=== PATIENT | female | born 1945 | race Caucasian/White ===

== ENCOUNTER → 2018-09-18 | Outpatient (CLI) | payer BC, MEDICARE ==
--- NOTE | 2018-09-21 13:33 | MM ---
Reason for exam: screening (asymptomatic). Last mammogram was performed 2 years and 5 months ago. History: Patient is postmenopausal. Took hormonal contraceptives for 5 years. Physical Findings: A clinical breast exam by your physician is recommended on an annual basis and results should be correlated with mammographic findings. MG Screening Mammo w CAD Bilateral CC and MLO view(s) were taken. Prior study comparison: May 02, 2016, bilateral MG screening mammo w CAD. March 01, 2015, bilateral MG screening mammo w CAD. There are scattered fibroglandular densities. Stable benign calcifications. No significant changes when compared with prior studies. ASSESSMENT: Benign, BI-RAD 2 RECOMMENDATION: Routine screening mammogram of both breasts in 1 year.
== END ==
LOC: RADMAMWWP 10:56
PROVIDERS: ATTEND Family Medicine
DX: Z12.31 Encounter for screening mammogram for malignant neoplasm of breast (principal)
CPT/HCPCS: 77067

== ENCOUNTER → 2018-10-14 | Outpatient (CLI) | payer BC | LOC: LABPAT 14:48 | PROVIDERS: ATTEND Orthopaedic Surgery | DX: Z01.812 Encounter for preprocedural laboratory examination (principal) | CPT/HCPCS: 87070 ==

== ENCOUNTER 2018-11-09 13:48 | Inpatient (IN) | payer BC, MEDICARE ==
--- NOTE | 2018-11-08 18:16 | HP ---
HISTORY AND PHYSICAL REASON FOR ADMISSION: Surgery 11/09/2018 HISTORY OF PRESENT ILLNESS: Estefani Michaels is a 73-year-old patient seen with symptomatic right knee osteoarthritis. After treatment options were discussed with her, she elected to proceed with right total knee arthroplasty. Consent regarding the procedure was obtained. Medical clearance was provided by Dr. Valdez. PAST MEDICAL HISTORY: Hypertension, daw-nxgnyke-fduacqldu diabetes, gastroesophageal reflux disease. PAST SURGICAL HISTORY: D and C. MEDICATIONS ARE: Glucophage, Pravachol, Prilosec, Zestoretic. ALLERGIES: None known. SOCIAL HISTORY: She denies current tobacco use. PHYSICAL EXAMINATION: Evaluation of the right knee range of motion is negative 4-5 to 110 degrees. There is a mild effusion present. Tenderness medial joint line. Crepitus medial and patellofemoral compartments with range of motion. Pain with patellofemoral compression. Ligaments stable. Hip rotation without pain. Distal neurovascular exam is intact. RADIOGRAPHS: Radiographs of the right knee reveal severe medial and severe patellofemoral compartment osteoarthritis. IMPRESSION: 1. Right knee osteoarthritis. 2. Hypertension. 3. Hyperlipidemia. 4. Zaw-akzwnud-gplahnwtg diabetes. PLAN: Right total knee arthroplasty. Surgery 11/09/2018. MMODL / IJN: [id number] /
[~2018-11-09 13:48] MED LIST: HYDROmorphone 0.5 MG/0.5 ML SYRINGE IVP PRN; MIDAZOLAM (PF) 2 MG/2 ML VIAL IV PRN; TRANEXAMIC ACID 1,000 MG in SODIUM CHLORIDE 0.9% 100 ML IVPB ONE; ceFAZolin IN SWFI 2 GM/20 ML SYRINGE IVP ONE
[2018-11-09] MEDS: MELOXICAM 7.5 MG TAB PO ONE ×2 (14:09→20:52)
[2018-11-09] MEDS: ACETAMINOPHEN TAB 500 MG TAB PO ONE ×2 (14:09→20:52)
[2018-11-09] MEDS: LACTATED RINGERS 1,000 ML IV SCH (14:26)
[2018-11-09] MEDS ORDERED: LIDOCAINE 1% 20 ML VIAL (10MG/ML) FOR IV START INTRADERMA ONE (14:27)
[2018-11-09 14:34] LABS: Glucose,Whole Blood 116 mg/dL (75-99)
[2018-11-09] MEDS: DEXAMETHASONE SOD PHOSPHATE 10 MG/ML 1 ML VIAL IV ONE ×2 (14:36→20:53)
[2018-11-09] MEDS: ONDANSETRON 4 MG/2 ML VIAL IVP ONE ×2 (14:36→20:54)
[2018-11-09] MEDS ORDERED: fentaNYL (PF) 50 MCG/ML 2 ML AMP IVP ONE (14:38)
[2018-11-09] MEDS ORDERED: ROPIVACAINE 246.25 MG, EPINEPHrine 0.5 MG, KETOROLAC 30 MG, cloNIDine HCL/PF 80 MCG, WA... MISCELLANE ONE ×5 (15:04)
[2018-11-09] MEDS ORDERED: ROPIVACAINE 1,100 MG, SODIUM CHLORIDE 0.9% 500 ML 330 ML MISCELLANE PRN ×2 (15:07)
--- NOTE | 2018-11-09 15:09 | P.ONQ ---
Anesthesiology Proc Note - PNB - Peripheral Nerve Block Performed Right Adductor Canal Infusion Time Out Performed: Yes Procedure Start Time: 14:37 Indication: Acute Post-Operative Pain Specifically requested for management of pain by DrRah: Quinn Kuo Sedation Type: Sedate with meaningful contact maintained Preparation: Sterile Prep Position: Supine Catheter Depth at Skin (cm): 8 Catheter: Indwelling Needle Types: Other (see comment) (Pajunk) Needle Size: 100mm (4") Needle Gauge: 18 Technique: Ultrasound Injectate: 0.5% Ropivacaine (see comment for volume) (20) Blood Aspirated: No Pain Paresthesia on Injection Noted: No Resistance on Injection: Normal Events: Uneventful and Well Tolerated
[2018-11-09] MEDS ORDERED: LIDOCAINE 1% INJ 10MG/ML (20 ML MDV) ONE (15:56)
[2018-11-09] MEDS ORDERED: fentaNYL (PF) 50 MCG/ML 2 ML AMP ONE (15:56)
[2018-11-09] MEDS ORDERED: MIDAZOLAM 2 MG/2 ML VIAL ONE (15:56)
[2018-11-09] MEDS ORDERED: PROPOFOL 10 MG/ML 20 ML VIAL IV ONE (15:56)
[2018-11-09] MEDS ORDERED: SODIUM CHLORIDE 0.9% 100 ML BAG ONE (15:56)
[2018-11-09] MEDS ORDERED: TRANEXAMIC ACID 1,000 MG/10 ML VIAL ONE (15:56)
[2018-11-09] MEDS ORDERED: ceFAZolin 3,000 MG in SODIUM CHLORIDE 0.9% IRRIGATIO 3,000 ML IRRIGATION ONE (16:25)
[2018-11-09] MEDS ORDERED: ONDANSETRON 4 MG/2 ML VIAL IVP PRN (16:31)
[2018-11-09] MEDS ORDERED: NALOXONE 0.4 MG/ML 1 ML VIAL IV PRN (16:31)
[2018-11-09] MEDS ORDERED: HYDROmorphone 0.5 MG/0.5 ML SYRINGE IVP PRN (16:31)
[2018-11-09] MEDS ORDERED: MAGNESIUM HYDROXIDE 2,400 MG/10 ML CUP PO PRN (16:31)
[2018-11-09] MEDS ORDERED: HYDROcodone/APAP 5-325MG 1 EACH TAB PO PRN (16:31)
[2018-11-09] MEDS ORDERED: LACTATED RINGERS 1,000 ML IV ONE (16:40)
--- NOTE | 2018-11-09 17:51 | P.OP ---
Date of Procedure: 11/09/18 Preoperative Diagnosis: Right knee osteoarthritis Postoperative Diagnosis: Right knee osteoarthritis Procedure(s) Performed: Right total knee arthroplasty Implants: 1. Depuy attune size 6 cruciate-retaining cemented femur 2. Depuy attune size 6 fixed bearing cemented tibial baseplate 3. Depuy attune size 6 fixed bearing 5 mm cruciate-retaining polyethylene tibial insert 4. Depuy attune 38 mm all polyethylene cemented patella Anesthesia: regional (Adductor canal catheter), local, spinal Surgeon: Quinn Kuo Estimated Blood Loss (ml): 50 Pathology: other (Bone) Condition: stable Disposition: PACU Indications for Procedure: 73-year-old patient seen with symptoms medical right knee osteoarthritis. After treatment options were discussed, showed to proceed with right total knee arthroplasty. Operative Findings: See description of procedure Description of Procedure: Patient was taken to the operative suite after having an adductor canal catheter placed by the department of anesthesia for postoperative pain management. Patient underwent a spinal anesthetic by the department of anesthesia. Patient was given preoperative IV intake antibiotics and TXA. A well-padded tourniquet was placed about the right lower extremity. The lower extremity was then prepped and draped in the normal sterile orthopedic fashion. The extremity was elevated, a tourniquet was insufflated to 300. A standard anterior incision was made sharply through skin. Dissection was taken down through the subcutaneous soft tissues down to the extensor mechanism. A medial arthrotomy was performed, patella was everted and knee was flexed. There was advanced osteoarthritis noted. I introduced my distal intramedullary femoral drill. I then introduced the distal femoral cutting jig. My office assistant receptionist secured the cutting jig with 2 pins. I held retractors in position while my office assistant receptionist performed the distal femoral resection through the guide area we now removed her distal femoral cutting guide. We now placed our 4-in-1 femoral cutting block and positioned and it was secured with 2 pins by my office assistant receptionist while I held the block in position. The distal femoral finishing was now completed. A proximal tibial cutting guide was positioned. I held the guide in the appropriate position with both hands while my office assistant receptionist inserted stabilizing pins into the guide. Proximal tibial cut was made. We now placed a trial femoral component into position, along with an appropriate size tibial tray and insert. We now took the knee through range of motion and had full extension good flexion and good overall soft tissue balance noted. The patella was everted and stabilized with 2 towel clips held by my office assistant receptionist while I performed a flush with patellar quad tendon utilizing a fresh sawblade. We templated the patella, appropriate drill holes were made. An appropriate trial patella was positioned, knee was taken through full range of motion with the patella tracking very nicely. The trial patella was removed. Drill holes were made through the femoral component. All trial components were removed after marking off the appropriate rotation of the tibia. Retractors were now positioned along the proximal tibia. An appropriate keel punch was made with the appropriate size tibial guide by myself while my office assistant receptionist assisted by holding retractors. At this point appropriate size implants were chosen and opened. The joint was irrigated copiously with pulse lavage mechanical irrigation. The posterior capsule was infiltrated with local analgesic. The wound was irrigated with pulse lavage mechanical irrigation. We mixed antibiotic methylmethacrylate. We placed the knee into flexion. We placed multiple retractors assisted by my office assistant receptionist to expose the proximal tibia. Once the methyl methacrylate was ready, the tibial component was cemented into place removing any excess methylmethacrylate form by both myself and my office assistant receptionist. The femoral component was cemented into place removing the removing any excess methylmethacrylate performed by both myself and my office assistant receptionist. We then inserted the appropriate size polyethylene tibial insert. We made sure that it was locked into position. We took the knee into full extension, and then back in a flexion making sure we had removed any excess methylmethacrylate. The patellar component was then cemented down and secured with clamp. Excess methylmethacrylate removed. We kept the knee in full extension, patellar clamp in position until methylmethacrylate had hardened. Once it had hardened the patellar clamp was removed. The knee was taken through full range of motion. The patella tracked nicely. There was good soft tissue balancing. The tourniquet was now released. Additional hemostasis was achieved via electrocautery. A second gram of TXA was given. The wound again was irrigated with pulse lavage mechanical irrigation. The superficial soft tissues were infiltrated local analgesic. The extensor mechanism was repaired with Vicryl. We checked the repair with range of motion and it was stable. The subcutaneous soft tissues were repaired with Vicryl in layers. The skin was approximated with pernio/Dermabond. Sterile dressings were applied followed by loose web roll and Ronaldo bandage. The patient was transferred to a bed, and taken to recovery in stable and satisfactory condition.
[2018-11-09] MEDS ORDERED: traMADol 50 MG TAB PO SCH (18:00)
--- NOTE | 2018-11-09 18:45 | XR ---
EXAMINATION TYPE: XR knee limited RT DATE OF EXAM: 11/09/2018 CLINICAL HISTORY: Right knee pain and arthritis status post total knee replacement. TECHNIQUE: Portable AP and crosstable lateral views of the right knee are obtained immediately posto peratively. COMPARISON: None FINDINGS: Metallic hardware from total right knee arthroplasty is seen and appears satisfactory in a lignment and position. There is evidence of recent surgery with diffuse subcutaneous gas and soft ti ssue swelling noted. IMPRESSION: METALLIC HARDWARE FROM TOTAL RIGHT KNEE ARTHROPLASTY IS SATISFACTORY IN ALIGNMENT.
[2018-11-09] MEDS: HYDROmorphone 0.5 MG/0.5 ML SYRINGE IVP PRN ×2 (20:13→23:42)
[2018-11-09 20:25] VITALS: BMI 34.0
[2018-11-09] MEDS: SENNOSIDES-DOCUSATE SODIUM 1 EACH TAB PO SCH (22:01)
[2018-11-09] MEDS: HYDROcodone/APAP 5-325MG 1 EACH TAB PO PRN (22:01)
[2018-11-09] MEDS: ceFAZolin IN SWFI 2 GM/20 ML SYRINGE IVP SCH (23:38)
[2018-11-10] MEDS: HYDROmorphone 0.5 MG/0.5 ML SYRINGE IVP PRN ×4 (04:16→21:29)
[2018-11-10] MEDS: HYDROcodone/APAP 5-325MG 1 EACH TAB PO PRN ×3 (05:45→18:21)
[2018-11-10] MEDS: LACTATED RINGERS 1,000 ML IV SCH (06:46)
[2018-11-10 08:07] LABS: Basophils % (A) 0 %; Eosinophils # (A) 0.1 k/uL (0-0.7); Eosinophils % (A) 1 %; HCT 32.8 % (34.0-46.0); HGB 10.4 gm/dL (11.4-16.0); Lymphocytes # (A) 1.7 k/uL (1.0-4.8); Lymphocytes % (A) 22 %; MCH 29.9 pg (25.0-35.0); MCHC 31.8 g/dL (31.0-37.0); MCV 94.1 fL (80.0-100.0); Mean Platelet Volume 7.6; Monocytes # (A) 0.5 k/uL (0-1.0); Monocytes % (A) 6 %; Neutrophils # (A) 5.3 k/uL (1.3-7.7); Neutrophils % (A) 70 %; Platelet Count 191 k/uL (150-450); RBC 3.49 m/uL (3.80-5.40); RDW 13.2 % (11.5-15.5); WBC 7.6 k/uL (3.8-10.6)
[2018-11-10] MEDS: ENOXAPARIN 30 MG/0.3 ML SYRINGE SQ SCH ×3 (08:14→21:28)
[2018-11-10] MEDS: ceFAZolin IN SWFI 2 GM/20 ML SYRINGE IVP SCH (08:14)
[2018-11-10] MEDS: FAMOTIDINE 20 MG TAB PO SCH (08:14)
--- NOTE | 2018-11-10 10:44 | P.PN ---
Subjective Progress Note Date: 11/10/18 Principal diagnosis: Status post right total knee arthroplasty Patient evaluated at bedside, she is resting comfortably. She does have some discomfort over the anterior and posterior aspect of the knee. She has ambulated with therapy. She denies any chest pain or shortness of breath. Objective - Vital Signs Vital signs: Vital Signs Temp 98.5 F 11/10/18 06:57 Pulse 70 11/10/18 09:51 Resp 14 11/10/18 06:57 BP 130/79 11/10/18 06:57 Pulse Ox 99 11/10/18 06:57 Intake & Output 11/09/18 11/10/18 11/10/18 18:59 06:59 18:59 Intake Total 1401 300 236 Output Total 50 Balance 1351 300 236 Intake: IV 1401 300 Oral 236 Output: Estimated Blood Loss 50 Other: Voiding Method Bedside Commode Bedside Commode # Voids 2 1 - Exam Right lower extremity: Incision is clean, dry, and intact. The exofin fusion tape is in good condition. There is minimal soft tissue swelling and ecchymosis surrounding the medial and lateral aspects of the incision. Calf is soft, no tenderness with palpation. Plantar flexion, dorsiflexion, EHL, FHL are intact. Sensory exam to light touch throughout the extremity is intact, dorsal pedis pulses 2+. - Labs CBC & Chem 7: 11/10/18 07:39 Labs: Abnormal Lab Results - Last 24 Hours (Table) 11/09/18 11/10/18 Range/Units 14:25 07:39 RBC 3.49 L (3.80-5.40) m/uL Hgb 10.4 L (11.4-16.0) gm/dL Hct 32.8 L (34.0-46.0) % POC Glucose (mg/dL) 116 H (75-99) mg/dL Assessment and Plan Plan: Assessment: Postoperative day #1 status post right total knee arthroplasty Plan: Pain control, continue oral medication GI and DVT prophylaxis, continue current medication Wound care instructions discussed Encourage incentive spirometer Ice and elevate/use of CPM Grey recommendations Plan for discharge home tomorrow Time with Patient: Less than 30
[2018-11-10] MEDS ORDERED: CYCLOBENZAPRINE 10 MG TAB PO PRN (13:05)
--- NOTE | 2018-11-10 13:23 | P.PN ---
Progress Note - Text Anesthesia POD 1. Patient is status post right TKR under spinal anesthesia with a right adductor canal catheter placed for postoperative pain relief. With ropivacaine 0.2% running at 10 cc's per hour, the patient's VAS is (2, 4). Catheter site is clean dry and intact.
--- NOTE | 2018-11-10 13:38 | P.CONS ---
History of Present Illness - Reason for Consult Consult date: 11/10/18 Medical management Requesting physician: Quinn Kuo - Chief Complaint Status post right total knee arthroplasty - History of Present Illness This is a 73-year-old female, patient of Dr. Valdez. She has a known history of possible arthritis, hypertension, hyperlipidemia and diabetes mellitus type 2. He shouldn't had a right total knee arthroplasty with Dr. Kuo yesterday. She tolerated surgery well. No complications. Estimated blood loss 50 mL. We have been consulted for medical management. Patient is still having significant pain in the right knee. Requiring IV pain medication. Orthopedics recommending that she states another day in the hospital for pain management. Patient denies any chest pain or shortness breath. Denies any nausea or vomiting. She is urinating without difficulty. She is passing gas no bowel movement yet. Anticipating discharge tomorrow Review of Systems Please refer to HPI otherwise unremarkable Past Medical History Past Medical History: GERD/Reflux, Hyperlipidemia, Hypertension, Osteoarthritis (OA) Additional Past Medical History / Comment(s): hx palpitationsm, varicose veins, hx superfiscial phlebitis, History of Any Multi-Drug Resistant Organisms: None Reported Past Surgical History: Adenoidectomy, Joint Replacement, Tonsillectomy Additional Past Surgical History / Comment(s): left hip replacement, D&C x 5, Past Anesthesia/Blood Transfusion Reactions: Motion Sickness Additional Past Anesthesia/Blood Transfusion Reaction / Comm: hypotensive with one surgery, Past Psychological History: Anxiety Smoking Status: Never smoker Past Alcohol Use History: Rare Past Drug Use History: None Reported - Past Family History Son(s) Family Medical History: Deep Vein Thrombosis (DVT), Pulmonary Embolus Medications and Allergies Home Medications Medication Instructions Recorded Confirmed Type Aspirin [Adult Low Dose Aspirin EC] 81 mg PO DAILY 10/29/18 11/10/18 History Cholecalciferol [Vitamin D3] 5,000 unit PO DAILY 10/29/18 11/10/18 History Cyclobenzaprine [Flexeril] 10 mg PO HS PRN 10/29/18 11/10/18 History Ibuprofen [Advil] 600 mg PO Q8HR PRN 10/29/18 11/10/18 History Lisinopril-Hctz 20-25 mg 1 tab PO DAILY 10/29/18 11/10/18 History [Zestoretic 20-25] Metoprolol Succinate [Toprol XL] 25 mg PO DAILY 10/29/18 11/10/18 History Multivit-Min/FA/Lycopen/Lutein 1 tab PO DAILY 10/29/18 11/10/18 History [Centrum Silver Tablet] Omeprazole [PriLOSEC] 20 mg PO AC-BRKFST 10/29/18 11/10/18 History Pravastatin Sodium [Pravachol] 10 mg PO HS 10/29/18 11/10/18 History Vit C/E/Zn/Coppr/Lutein/Zeaxan 1 cap PO BID 10/29/18 11/10/18 History [Preservision Areds 2 Softgel] metFORMIN HCL [Glucophage] 1,000 mg PO QAM 10/29/18 11/10/18 History traMADol HCL [Ultram] 150 mg PO HS 10/29/18 11/10/18 History Allergies Allergy/AdvReac Type Severity Reaction Status Date / Time No Known Allergies Allergy Verified 11/10/18 07:12 Physical Exam Vitals: Vital Signs Temp Pulse Pulse Resp BP Pulse Ox 11/10/18 09:51 70 11/10/18 06:57 98.5 F 70 14 130/79 99 11/10/18 01:12 98.7 F 75 18 115/69 94 L 11/10/18 00:20 18 11/09/18 21:45 82 126/78 11/09/18 21:30 73 102/70 11/09/18 21:15 71 130/81 11/09/18 21:00 71 151/89 11/09/18 20:45 72 156/85 11/09/18 20:30 73 146/85 11/09/18 20:15 73 144/82 11/09/18 20:10 71 18 11/09/18 20:00 74 133/73 11/09/18 19:45 98.4 F 74 15 151/79 96 11/09/18 19:30 78 18 146/77 94 L 11/09/18 19:15 82 18 129/61 95 11/09/18 19:01 82 18 134/65 92 L 11/09/18 18:45 80 18 147/68 92 L 11/09/18 18:30 77 18 151/71 92 L 04/01/19 18:15 76 18 146/69 97 11/09/18 18:00 97.7 F 81 16 148/78 96 11/09/18 15:02 67 18 170/78 98 11/09/18 14:21 98.2 F 75 18 198/91 98 Intake and Output 11/09/18 11/10/18 11/10/18 22:59 06:59 14:59 Intake Total 1301 236 Output Total 50 Balance 1251 236 Intake: IV 1301 Oral 236 Output: Estimated Blood Loss 50 Other: Voiding Method Bedside Commode Bedside Commode # Voids 1 2 1 Head normocephalic Neck supple Lungs clear to auscultation bilaterally no wheezing or crackles Heart regular rate and rhythm S1-S2, no rub or gallop Abdomen is soft nontender nondistended positive bowel sounds no hepatosplenomegaly Extremities no edema. Ice pack on right knee. No calf tenderness. Neuro alert and orientated to 3 Results CBC & Chem 7: 11/10/18 07:39 Labs: Abnormal Lab Results - Last 24 Hours (Table) 11/09/18 11/10/18 Range/Units 14:25 07:39 RBC 3.49 L (3.80-5.40) m/uL Hgb 10.4 L (11.4-16.0) gm/dL Hct 32.8 L (34.0-46.0) % POC Glucose (mg/dL) 116 H (75-99) mg/dL Assessment and Plan Assessment: 1. Osteoarthritis of the right knee. Status post right total knee ar throplasty. Continue pain control per orthopedic protocol. Continue the Lovenox for DVT prophylaxis 2. Essential hypertension: Blood pressures are stable we'll resume patient's Zestoretic and metoprolol 3. Diabetes mellitus type 2: Resume patient's metformin and add sliding scale coverage. 4. Hyperlipidemia 5. Expected acute blood loss anemia secondary to surgery. Start patient on gila waldo sulfate 325 mg twice a day. Hemoglobin is 10.4 Thank you for this consultation. We will check routine labs in the morning. We will continue to follow along during patient's hospitalization Anticipating discharge tomorrow Time with Patient: Greater than 30 (.Greater than 50% of the total time spent in counseling and coordination of careI performed an examination of the patient and discussed their management with the physician Varnish Melter. I have reviewed the Physician Varnish Melter's notes and agree with the documented findings and plan of care)
[2018-11-10 14:52] LABS: Calcium 9.3 mg/dL (8.4-10.2); Potassium 4.5 mmol/L (3.5-5.1)
[2018-11-10] MEDS: VIT A,C & E-LUTEIN-MINERALS 1 EACH TAB PO SCH ×2 (14:58→21:29)
[2018-11-10] MEDS: METOPROLOL SUCCINATE (ER) 25 MG TAB.ER.24H PO SCH (14:58)
[2018-11-10] MEDS: MULTIVITAMINS, THERA 1 EACH TAB PO SCH (14:58)
[2018-11-10] MEDS: INSULIN ASPART (NovoLOG) 100 UNIT/ML VIAL SQ SCH ×2 (17:15→21:28)
[2018-11-10 17:16] LABS: Glucose,Whole Blood 160 mg/dL (75-99)
[2018-11-10 21:09] LABS: Glucose,Whole Blood 141 mg/dL (75-99)
[2018-11-10] MEDS: PRAVASTATIN SODIUM 20 MG TAB PO SCH (21:28)
[2018-11-10] MEDS: SENNOSIDES-DOCUSATE SODIUM 1 EACH TAB PO SCH (21:28)
[2018-11-11 07:54] LABS: Glucose,Whole Blood 168 mg/dL (75-99)
[2018-11-11] MEDS: METOPROLOL SUCCINATE (ER) 25 MG TAB.ER.24H PO SCH (08:00)
[2018-11-11] MEDS: LISINOPRIL-HCTZ 20-25 MG 1 EACH TAB PO SCH (08:00)
[2018-11-11] MEDS: HYDROcodone/APAP 5-325MG 1 EACH TAB PO PRN ×3 (08:00→22:16)
[2018-11-11 08:41] LABS: Basophils % (A) 0 %; Eosinophils # (A) 0.1 k/uL (0-0.7); Eosinophils % (A) 1 %; HCT 33.5 % (34.0-46.0); HGB 10.8 gm/dL (11.4-16.0); Lymphocytes # (A) 1.4 k/uL (1.0-4.8); Lymphocytes % (A) 17 %; MCHC 32.2 g/dL (31.0-37.0); Monocytes # (A) 0.5 k/uL (0-1.0); Monocytes % (A) 6 %; Neutrophils # (A) 6.2 k/uL (1.3-7.7); Neutrophils % (A) 75 %; Platelet Count 183 k/uL (150-450); RDW 13.4 % (11.5-15.5); WBC 8.2 k/uL (3.8-10.6)
[2018-11-11 08:51] LABS: Albumin 3.4 g/dL (3.5-5.0); Calcium 9.4 mg/dL (8.4-10.2); Potassium 4.2 mmol/L (3.5-5.1); Total Bilirubin 0.6 mg/dL (0.2-1.3); Total Protein 6.1 g/dL (6.3-8.2)
[2018-11-11] MEDS: MULTIVITAMINS, THERA 1 EACH TAB PO SCH (09:46)
[2018-11-11] MEDS: metFORMIN 500 MG TAB PO SCH (09:46)
[2018-11-11] MEDS: CHOLECALCIFEROL 1,000 UNIT TAB PO SCH (09:46)
[2018-11-11] MEDS: VIT A,C & E-LUTEIN-MINERALS 1 EACH TAB PO SCH ×2 (09:46→22:17)
[2018-11-11] MEDS: FAMOTIDINE 20 MG TAB PO SCH (09:46)
[2018-11-11] MEDS: ENOXAPARIN 30 MG/0.3 ML SYRINGE SQ SCH ×2 (09:46→22:18)
[2018-11-11] MEDS: INSULIN ASPART (NovoLOG) 100 UNIT/ML VIAL SQ SCH ×4 (09:46→22:17)
--- NOTE | 2018-11-11 09:46 | P.PN ---
Subjective Progress Note Date: 11/11/18 Principal diagnosis: Status post right total knee arthroplasty Patient evaluated at bedside, she is resting comfortably. Patient states she is having discomfort mainly when she walks, she had a hard time ambulating at this time. She denies any chest pain or shortness of breath. Objective - Vital Signs Vital signs: Vital Signs Temp 99.6 F 11/11/18 07:00 Pulse 85 11/11/18 07:00 Resp 18 11/11/18 07:00 BP 170/96 11/11/18 07:00 Pulse Ox 95 11/11/18 07:00 Intake & Output 11/10/18 11/11/18 11/11/18 18:59 06:59 18:59 Intake Total 996 Balance 996 Intake: Oral 996 Other: Voiding Method Bedside Commode Bedside Commode # Voids 1 2 - Exam Right lower extremity: Incision is clean, dry, and intact. The exofin fusion tape is in good condition. There is minimal soft tissue swelling and ecchymosis surrounding the medial and lateral aspects of the incision. Calf is soft, no tenderness with palpation. Plantar flexion, dorsiflexion, EHL, FHL are intact. Sensory exam to light touch throughout the extremity is intact, dorsal pedis pulses 2+. - Labs CBC & Chem 7: 11/11/18 08:09 11/11/18 08:09 Labs: Abnormal Lab Results - Last 24 Hours (Table) 11/10/18 11/10/18 11/10/18 Range/Units 07:39 17:05 21:07 RBC (3.80-5.40) m/uL Hgb (11.4-16.0) gm/dL Hct (34.0-46.0) % BUN 27 H (7-17) mg/dL Glucose 103 H (74-99) mg/dL POC Glucose (mg/dL) 160 H 141 H (75-99) mg/dL Total Protein (6.3-8.2) g/dL Albumin (3.5-5.0) g/dL 11/11/18 11/11/18 11/11/18 Range/Units 07:52 08:09 08:09 RBC 3.60 L (3.80-5.40) m/uL Hgb 10.8 L (11.4-16.0) gm/dL Hct 33.5 L (34.0-46.0) % BUN 18 H (7-17) mg/dL Glucose 145 H (74-99) mg/dL POC Glucose (mg/dL) 168 H (75-99) mg/dL Total Protein 6.1 L (6.3-8.2) g/dL Albumin 3.4 L (3.5-5.0) g/dL Assessment and Plan Plan: Assessment: Postoperative day #2 status post right total knee arthroplasty Plan: Pain control, continue oral medication GI and DVT prophylaxis, continue current medication Wound care instructions discussed Encourage incentive spirometer Ice and elevate/use of CPM Medical recommendations The patient continues to have difficulty time with ambulating, we will likely plan for discharge to rehab. We'll evaluate later this afternoon and tomorrow. Time with Patient: Less than 30
[2018-11-11] MEDS: traMADol 50 MG TAB PO PRN ×2 (10:02→19:05)
[2018-11-11 11:33] LABS: Glucose,Whole Blood 203 mg/dL (75-99)
--- NOTE | 2018-11-11 11:44 | P.PN ---
Subjective Progress Note Date: 11/11/18 This is a 73-year-old female, patient of Dr. Valdez. She has a known history of possible arthritis, hypertension, hyperlipidemia and diabetes mellitus type 2. He shouldn't had a right total knee arthroplasty with Dr. Kuo yesterday. She tolerated surgery well. No complications. Estimated blood loss 50 mL. We have been consulted for medical management. Patient is still having significant pain in the right knee. Requiring IV pain medication. Orthopedics recommending that she states another day in the hospital for pain management. Patient denies any chest pain or shortness breath. Denies any nausea or vomiting. She is urinating without difficulty. She is passing gas no bowel movement yet. Anticipating discharge tomorrow On 11/11/2018 patient is alert and oriented 3 resting comfortably in chair. Patient reports she is planning for discharge to rehab now possibly tomorrow per orthopedic services. Patient did have a low-grade temp of 99.9 this AM. Will order urinary analysis. Patient denies cough or upper. Patient denies any urinary symptoms patient denies nausea vomiting or diarrhea Objective - Vital Signs Vital signs: Vital Signs Temp 99.6 F 11/11/18 07:00 Pulse 81 11/11/18 09:50 Resp 18 11/11/18 07:00 BP 121/74 11/11/18 09:50 Pulse Ox 95 11/11/18 07:00 Intake & Output 11/10/18 11/11/18 11/11/18 18:59 06:59 18:59 Intake Total 996 240 Balance 996 240 Intake: Oral 996 240 Other: Voiding Method Bedside Commode Bedside Commode Bedside Commode # Voids 1 2 - Exam Head normocephalic Neck supple Lungs clear to auscultation bilaterally no wheezing or crackles Heart regular rate and rhythm S1-S2, no rub or gallop Abdomen is soft nontender nondistended positive bowel sounds no hepatosp lenomegaly Extremities no edema. Ice pack on right knee. No calf tenderness. Neuro alert and orientated to 3 - Labs CBC & Chem 7: 11/11/18 08:09 11/11/18 08:09 Labs: Abnormal Lab Results - Last 24 Hours (Table) 11/10/18 11/10/18 11/10/18 Range/Units 07:39 17:05 21:07 RBC (3.80-5.40) m/uL Hgb (11.4-16.0) gm/dL Hct (34.0-46.0) % BUN 27 H (7-17) mg/dL Glucose 103 H (74-99) mg/dL POC Glucose (mg/dL) 160 H 141 H (75-99) mg/dL Total Protein (6.3-8.2) g/dL Albumin (3.5-5.0) g/dL 11/11/18 11/11/18 11/11/18 Range/Units 07:52 08:09 08:09 RBC 3.60 L (3.80-5.40) m/uL Hgb 10.8 L (11.4-16.0) gm/dL Hct 33.5 L (34.0-46.0) % BUN 18 H (7-17) mg/dL Glucose 145 H (74-99) mg/dL POC Glucose (mg/dL) 168 H (75-99) mg/dL Total Protein 6.1 L (6.3-8.2) g/dL Albumin 3.4 L (3.5-5.0) g/dL 11/11/18 Range/Units 11:30 RBC (3.80-5.40) m/uL Hgb (11.4-16.0) gm/dL Hct (34.0-46.0) % BUN (7-17) mg/dL Glucose (74-99) mg/dL POC Glucose (mg/dL) 203 H (75-99) mg/dL Total Protein (6.3-8.2) g/dL Albumin (3.5-5.0) g/dL Assessment and Plan Assessment: 1. Osteoarthritis of the right knee. Status post right total knee arthroplasty. Continue pain control per orthopedic protocol. Continue the Lovenox for DVT prophylaxis 2. Essential hypertension: Blood pressures are stable we'll resume patient's Zestoretic and metoprolol 3. Diabetes mellitus type 2: Resume patient's metformin and add sliding scale coverage. 4. Hyperlipidemia 5. Expected acute blood loss anemia secondary to surgery. Start patient on f errous sulfate 325 mg twice a day. Hemoglobin is 10.4 6. Low-grade temp. Patient did have temp 99.9 this AM. Patient denies any shortness of breath or respiratory symptoms. Patient denies nausea vomiting or diarrhea. Will order urinary analysis at this time Thank you for this consultation. We will check routine labs in the morning. We will continue to follow along during patient's hospitalization Discharge planning to ECF facility in the next 24-48 hours. Miri Vergara I performed an examination of the patient and discussed their management with the Nurse Practitioner. I have reviewed the Nurse Practitioner's notes and agree with the documented findings and plan of care
[2018-11-11] MEDS: LACTATED RINGERS 1,000 ML IV SCH (13:24)
[2018-11-11 14:42] LABS: Appearance,Urine Clear (Clear); Bilirubin,Urine Negative (Negative); Blood,Urine Negative (Negative); Color,Urine Yellow; Glucose,Urine (UA) Negative (Negative); Ketones,Urine Negative (Negative); Leukocyte Esterase,Urine Negative (Negative); Nitrite,Urine Negative (Negative); PH, Urine 6.5 (5.0-8.0); Protein,Urine Negative (Negative); Specific Gravity,Urine 1.015 (1.001-1.035); Urobilinogen,Urine <2.0 mg/dL (<2.0)
[2018-11-11 17:01] LABS: Glucose,Whole Blood 161 mg/dL (75-99)
[2018-11-11 21:33] LABS: Glucose,Whole Blood 231 mg/dL (75-99)
[2018-11-11] MEDS: SENNOSIDES-DOCUSATE SODIUM 1 EACH TAB PO SCH (22:01)
[2018-11-11] MEDS: PRAVASTATIN SODIUM 20 MG TAB PO SCH (22:17)
[2018-11-12] MEDS: HYDROcodone/APAP 5-325MG 1 EACH TAB PO PRN ×3 (04:27→19:24)
[2018-11-12] MEDS: LACTATED RINGERS 1,000 ML IV SCH (05:16)
[2018-11-12 07:18] LABS: Glucose,Whole Blood 134 mg/dL (75-99)
[2018-11-12] MEDS: traMADol 50 MG TAB PO PRN ×3 (08:02→21:52)
[2018-11-12] MEDS: INSULIN ASPART (NovoLOG) 100 UNIT/ML VIAL SQ SCH ×4 (08:04→20:51)
[2018-11-12] MEDS: metFORMIN 500 MG TAB PO SCH (08:05)
[2018-11-12] MEDS: CHOLECALCIFEROL 1,000 UNIT TAB PO SCH (08:05)
[2018-11-12] MEDS: METOPROLOL SUCCINATE (ER) 25 MG TAB.ER.24H PO SCH (08:05)
[2018-11-12] MEDS: FAMOTIDINE 20 MG TAB PO SCH (08:05)
[2018-11-12] MEDS: ENOXAPARIN 30 MG/0.3 ML SYRINGE SQ SCH ×2 (08:05→20:47)
[2018-11-12] MEDS: VIT A,C & E-LUTEIN-MINERALS 1 EACH TAB PO SCH ×2 (08:06→21:50)
[2018-11-12] MEDS: LISINOPRIL-HCTZ 20-25 MG 1 EACH TAB PO SCH (08:06)
[2018-11-12 10:00] LABS: Basophils % (A) 0 %; Eosinophils # (A) 0.1 k/uL (0-0.7); Eosinophils % (A) 2 %; HCT 29.8 % (34.0-46.0); HGB 9.9 gm/dL (11.4-16.0); Lymphocytes # (A) 1.5 k/uL (1.0-4.8); Lymphocytes % (A) 20 %; MCH 30.4 pg (25.0-35.0); MCHC 33.1 g/dL (31.0-37.0); MCV 91.8 fL (80.0-100.0); Mean Platelet Volume 8.4; Monocytes # (A) 0.5 k/uL (0-1.0); Monocytes % (A) 7 %; Neutrophils # (A) 5.3 k/uL (1.3-7.7); Neutrophils % (A) 70 %; Platelet Count 182 k/uL (150-450); RBC 3.25 m/uL (3.80-5.40); RDW 13.4 % (11.5-15.5); WBC 7.6 k/uL (3.8-10.6)
[2018-11-12 10:03] LABS: Calcium 9.3 mg/dL (8.4-10.2); Potassium 3.9 mmol/L (3.5-5.1); Total Bilirubin 0.7 mg/dL (0.2-1.3); Total Protein 5.5 g/dL (6.3-8.2)
--- NOTE | 2018-11-12 11:03 | P.PN ---
Subjective Progress Note Date: 11/12/18 Principal diagnosis: Status post right total knee arthroplasty Patient evaluated at bedside, she is resting comfortably. Patient states she is having discomfort mainly when she walks She denies any chest pain or shortness of breath. Objective - Vital Signs Vital signs: Vital Signs Temp 98 F 11/12/18 07:00 Pulse 132 H 11/12/18 08:27 Resp 18 11/12/18 07:00 BP 137/81 11/12/18 07:00 Pulse Ox 94 L 11/12/18 02:40 Intake & Output 11/11/18 11/12/18 11/12/18 18:59 06:59 18:59 Intake Total 720 480 Balance 720 480 Intake: Oral 720 480 Other: Voiding Method Bedside Commode Bedside Commode # Voids 1 1 - Exam Right lower extremity: Incision is clean, dry, and intact. The exofin fusion tape is in good condition. There is minimal soft tissue swelling and ecchymosis surrounding the medial and lateral aspects of the incision. Calf is soft, no tenderness with palpation. Plantar flexion, dorsiflexion, EHL, FHL are intact. Sensory exam to light touch throughout the extremity is intact, dorsal pedis pulses 2+. - Labs CBC & Chem 7: 11/12/18 09:11 11/12/18 09:11 Labs: Abnormal Lab Results - Last 24 Hours (Table) 11/11/18 11/11/18 11/11/18 Range/Units 11:30 16:49 21:31 RBC (3.80-5.40) m/uL Hgb (11.4-16.0) gm/dL Hct (34.0-46.0) % BUN (7-17) mg/dL Glucose (74-99) mg/dL POC Glucose (mg/dL) 203 H 161 H 231 H (75-99) mg/dL Total Protein (6.3-8.2) g/dL Albumin (3.5-5.0) g/dL 11/12/18 11/12/18 11/12/18 Range/Units 07:03 09:11 09:11 RBC 3.25 L (3.80-5.40) m/uL Hgb 9.9 L (11.4-16.0) gm/dL Hct 29.8 L (34.0-46.0) % BUN 20 H (7-17) mg/dL Glucose 141 H (74-99) mg/dL POC Glucose (mg/dL) 134 H (75-99) mg/dL Total Protein 5.5 L (6.3-8.2) g/dL Albumin 3.0 L (3.5-5.0) g/dL Assessment and Plan Plan: Assessment: Postoperative day #3 status post right total knee arthroplasty Plan: Pain control, continue oral medication GI and DVT prophylaxis, continue current medication Wound care instructions discussed Encourage incentive spirometer Ice and elevate/use of CPM Medical recommendations Discharge to rehab today Time with Patient: Less than 30
--- NOTE | 2018-11-12 11:09 | P.DS ---
Providers Date of admission: 11/09/2018 Expected date of discharge: 11/12/18 Attending physician: Quinn Kuo Consults: 11/09/18 16:36 Consult Physician Routine Consulting Provider: Ysabel Valdez Reason/Comments: Medical Management Do you want consulting provider notified?: Yes Primary care physician: Ysabel Valdez Hospital Course: Date of admission: 11/09/2018 Date of discharge: 11/12/2018 Admission diagnosis: Status post right total knee arthroplasty Discharge diagnosis: Same Attending physician: Dr. Kuo Surgical procedures: Right total knee arthroplasty Brief history: Patient is a 73-year-old female with a history of progressive primary right knee osteoarthritis. At this point patient has failed conservative treatment measures and has opted to proceed with a elective right total knee arthroplasty. Hospital course: Details of patient's surgery can be found in operative report. Patient tolerated the procedure well and was subsequently transported to orthopedic floor. Patient's orthopeidc and medical care was provided daily. Patient had daily laboratory tests performed for evaluation of overall blood counts. Patient had daily physical therapy to include strengthening range of motion as well as education with walker ambulation. Patient had daily CPM usage as part of their physical therapy program. Patient was treated with Lovenox for their postoperative DVT prophylaxis during their inpatient stay. Patient was noted to have a relatively uneventful postoperative course. Patient reported satisfactory pain control with oral pain medications by postoperative day 0. Patient showed satisfactory progress with physical therapy. Patient moved steadily through the program and had no difficulty meeting the goals by postop erative day 3. Given patient's otherwise satisfactory course and having met physical therapy goals, plan is to discharge patient rehab on postoperative day 3. Discharge condition/disposition: Patient will be discharged rehab in stable condition. Discharge medications: Instructions are given on resumption of patient's normal daily medications per primary care recommendation, in addition patient will be prescribed Peever 5 mg/325 mg, heparin 5000 units, Colace 100 mg. Discharge instructions: 1. Wound care and infection precautions, keep incision dry and covered while showering, no lotions, creams, moisturizers. No soaking, tubs, pools, hottubs. Do not scrub over the incision. 2. Weight-bear as tolerated with walker / cane until follow-up. 3. Ice and elevate when necessary. Do not exceed 20 minutes per hour with ice pack. 4. Utilize compression sleeve until seen at first follow up appointment. 5. Visiting nursing care. 6. Home physical therapy. 7. Pain meds and anticoagulants per prescription. 8. Pain medication has potential to cause constipation. Increase oral fluid and fiber intake. Contact primary care provider if you have not had a bowel movement within 48 hours after discharge 9. No anti-inflammatory medication until discussed at first post operative visit, this including Motrin, Aleve, Mobic, Diclofenac. 10. Follow up in office at 2 weeks postop with Devon Carbajal PA-C 11. Follow up with your primary care doctor 7-10 days after discharge. 12. Contact [facility] with any questions, . Procedures: Right total knee arthroplasty Patient Condition at Discharge: Good Plan - Discharge Summary Discharge Rx Participant: Yes New Discharge Prescriptions: New Docusate [Colace] 100 mg PO DAILY #30 capsule Heparin Sodium,Porcine [Heparin Sodium] 5,000 unit SQ Q12HR #30 vial Hydrocodone/Acetaminophen [Peever 5-325] 1 - 2 each PO Q6HR PRN #56 tab PRN Reason: Pain traMADol HCl [Ultram] 50 mg PO Q6H PRN #28 tab PRN Reason: Pain Cyclobenzaprine [Flexeril] 10 mg PO HS PRN #30 tab PRN Reason: Spasms No Action metFORMIN HCL [Glucophage] 1,000 mg PO QAM Vit C/E/Zn/Coppr/Lutein/Zeaxan [Preservision Areds 2 Softgel] 1 cap PO BID Pravastatin Sodium [Pravachol] 10 mg PO HS Omeprazole [PriLOSEC] 20 mg PO AC-BRKFST Multivit-Min/FA/Lycopen/Lutein [Centrum Silver Tablet] 1 tab PO DAILY Metoprolol Succinate [Toprol XL] 25 mg PO DAILY Lisinopril-Hctz 20-25 mg [Zestoretic 20-25] 1 tab PO DAILY Cholecalciferol [Vitamin D3] 5,000 unit PO DAILY Aspirin [Adult Low Dose Aspirin EC] 81 mg PO DAILY Ibuprofen [Advil] 600 mg PO Q8HR PRN PRN Reason: Pain Discharge Medication List Aspirin [Adult Low Dose Aspirin EC] 81 mg PO DAILY 10/29/18 [History] Cholecalciferol [Vitamin D3] 5,000 unit PO DAILY 10/29/18 [History] Ibuprofen [Advil] 600 mg PO Q8HR PRN 10/29/18 [History] Lisinopril-Hctz 20-25 mg [Zestoretic 20-25] 1 tab PO DAILY 10/29/18 [History] Metoprolol Succinate [Toprol XL] 25 mg PO DAILY 10/29/18 [History] Multivit-Min/FA/Lycopen/Lutein [Centrum Silver Tablet] 1 tab PO DAILY 10/29/18 [History] Omeprazole [PriLOSEC] 20 mg PO AC-BRKFST 10/29/18 [History] Pravastatin Sodium [Pravachol] 10 mg PO HS 10/29/18 [History] Vit C/E/Zn/Coppr/Lutein/Zeaxan [Preservision Areds 2 Softgel] 1 cap PO BID 10/29/18 [History] metFORMIN HCL [Glucophage] 1,000 mg PO QAM 10/29/18 [History] Cyclobenzaprine [Flexeril] 10 mg PO HS PRN #30 tab 11/12/18 [Rx] Docusate [Colace] 100 mg PO DAILY #30 capsule 11/12/18 [Rx] Heparin Sodium,Porcine [Heparin Sodium] 5,000 unit SQ Q12HR #30 vial 11/12/18 [Rx] Hydrocodone/Acetaminophen [Peever 5-325] 1 - 2 each PO Q6HR PRN #56 tab 11/12/18 [Rx] traMADol HCl [Ultram] 50 mg PO Q6H PRN #28 tab 11/12/18 [Rx] Follow up Appointment(s)/Referral(s): Ysabel Valdez MD [Primary Care Provider] - 11/19/18 1:15 pm [facility],Equipment [NON-STAFF] - As Needed (Continuous Passive Motion knee machine) [facility], [NON-STAFF] - As Needed [place] Carbajal PAC [PHYSICIAN METAL CRAFTS TEACHER] - 11/25/18 2:50 pm [facility], [NON-STAFF] - As Needed Activity/Diet/Wound Care/Special Instructions: Please call [facility] in order for them to deliver Continuous Passive Motion (CPM) knee machine today: #[phone] Orthopedic Discharge Instructions: 1. Wound care and infection precautions, keep incision dry and covered while showering, no lotions, creams, moisturizers. No soaking, pools, hot tubs. Do not scrub over incision. 2. Weight-bear as tolerated with walker / cane until follow-up. 3. Ice and elevate when necessary. Do not exceed 20 minutes per hour with ice pack. 4. Utilize compression sleeve until seen at first follow up appointment. 5. Pain meds and anticoagulants per prescription. 6. Pain medication has potential to cause constipation. Increase oral fluid and fiber intake. Contact primary care provider if you have not had a bowel movement within 48 hours after discharge. 7. No anti-inflammatory medication until discussed at first post operative visit, this including Motrin, Aleve, Mobic, Diclofenac. 8. Follow up in office at 2 weeks postop with Devon Carbajal PA-C 9. Follow up with your primary care doctor 7-10 days after discharge. 10. Contact [facility] with any questions, . Anticoagulation instructions: 1. Please utilize heparin 5000 units subcu every 12 hours rehab 2. Discontinue heparin when discharged home, patient will then begin aspirin 81 mg twice a day Discharge Disposition: TRANSFER TO SNF/ECF
[2018-11-12 11:59] LABS: Glucose,Whole Blood 122 mg/dL (75-99)
--- NOTE | 2018-11-12 12:10 | XR ---
EXAMINATION TYPE: XR chest 2V DATE OF EXAM: 11/12/2018 COMPARISON: Prior chest x-ray 09/02/2012 HISTORY: Fever TECHNIQUE: Frontal and lateral views of the chest are obtained. FINDINGS: There is no focal air space opacity, pleural effusion, or pneumothorax seen. The cardiac silhouette size is stable and enlarged. Lung volumes are prominent, there is flattening the hemidia phragms consistent with COPD. Thoracic spondylosis is present. The osseous structures are intact. IMPRESSION: No acute cardiopulmonary process.
--- NOTE | 2018-11-12 13:33 | P.PN ---
Subjective Progress Note Date: 11/12/18 This is a 73-year-old female, patient of Dr. Valdez. She has a known history of osteoarthritis, hypertension, hyperlipidemia and diabetes mellitus type 2. He shouldn't had a right total knee arthroplasty with Dr. Kuo yesterday. She tolerated surgery well. No complications. Estimated blood loss 50 mL. We have been consulted for medical management. Patient is still having significant pain in the right knee. Requiring IV pain medication. Orthopedics recommending that she states another day in the hospital for pain management. Patient denies any chest pain or shortness breath. Denies any nausea or vomiting. She is urinating without difficulty. She is passing gas no bowel movement yet. Anticipating discharge tomorrow On 11/11/2018 patient is alert and oriented 3 resting comfortably in chair. Patient reports she is planning for discharge to rehab now possibly tomorrow per orthopedic services. Patient did have a low-grade temp of 99.9 this AM. Will order urinary analysis. Patient denies cough or upper. Patient denies any urinary symptoms patient denies nausea vomiting or diarrhea 11/12/2018 orthopedics have cleared patient for discharge. Patient did have a low-grade temps of 99 yesterday. Urinalysis was negative. She did have a temp of 99 at 240 this morning. Heart rate also went up into the 130s around 7:00 this morning. Patient states that she felt her heart pounding. She denies any chest pain shortness of breath. She denies feeling ill. Denies any extreme pain in her knee. Denies any cough denies any burning with urination denies any diarrhea denies any vomiting. She does report 3 softer bowel movements yesterday. She is now refusing the stool softeners. She does report a history of tachycardia. Was seen by Dr. Hernandez her ethnographic materials conservator in the past and had Holter monitor. Patient reports that the Holter monitor did not show any arrhythmias. Objective - Vital Signs Vital signs: Vital Signs Temp 98 F 11/12/18 07:00 Pulse 76 11/12/18 09:15 Resp 18 11/12/18 07:00 BP 137/81 11/12/18 07:00 Pulse Ox 94 L 11/12/18 02:40 Intake & Output 11/11/18 11/12/18 11/12/18 18:59 06:59 18:59 Intake Total 720 480 Balance 720 480 Intake: Oral 720 480 Other: Voiding Method Bedside Commode Bedside Commode # Voids 1 1 - Exam Head normocephalic Neck supple Lungs clear to auscultation bilaterally no wheezing or crackles Heart regular rate and rhythm S1-S2, no rub or gallop Abdomen is soft nontender nondistended positive bowel sounds no hepatosplenomegaly Extremities no edema. Right leg is swollen. Incision site of the right knee is clean dry and intact. No calf tenderness Neuro alert and orientated to 3 - Labs CBC & Chem 7: 11/12/18 09:11 11/12/18 09:11 Labs: Abnormal Lab Results - Last 24 Hours (Table) 11/11/18 11/11/18 11/12/18 Range/Units 16:49 21:31 07:03 RBC (3.80-5.40) m/uL Hgb (11.4-16.0) gm/dL Hct (34.0-46.0) % BUN (7-17) mg/dL Glucose (74-99) mg/dL POC Glucose (mg/dL) 161 H 231 H 134 H (75-99) mg/dL Total Protein (6.3-8.2) g/dL Albumin (3.5-5.0) g/dL 11/12/18 11/12/18 11/12/18 Range/Units 09:11 09:11 11:40 RBC 3.25 L (3.80-5.40) m/uL Hgb 9.9 L (11.4-16.0) gm/dL Hct 29.8 L (34.0-46.0) % BUN 20 H (7-17) mg/dL Glucose 141 H (74-99) mg/dL POC Glucose (mg/dL) 122 H (75-99) mg/dL Total Protein 5.5 L (6.3-8.2) g/dL Albumin 3.0 L (3.5-5.0) g/dL Assessment and Plan Assessment: 1. Osteoarthritis of the right knee. Status post right total knee arthroplasty. Continue pain control per orthopedic protocol. The planning subcu heparin for DVT prophylaxis at discharge 2. Essential hypertension: Blood pressures are stable we'll resume patient's Zestoretic and metoprolol 3. Diabetes mellitus type 2: Resume patient's metformin and add sliding scale coverage. 4. Hyperlipidemia 5. Expected acute blood loss anemia secondary to surgery. Start patient on ferrous sulfate 325 mg twice a day. Hemoglobin is 9.9 at discharge. 6. Tachycardia: Heart rate in the 130s. Check EKG. Place patient on telemetry monitoring. Heart rate is now 76. Also some low-grade temps of 99. Chest x- ray ordered. Urinalysis negative. Consult cardiology regarding tachycardia. Check magnesium and thyroid level Patient is not medically stable for discharge to [facility] today. We'll have her seen by cardiology and workup the tachycardia. I performed an examination of the patient and discussed their management with the physician Candlemaker. I have reviewed the Physician Candlemaker's notes and agree with the documented findings and plan of care
[2018-11-12] MEDS: MULTIVITAMINS, THERA 1 EACH TAB PO SCH (13:34)
[2018-11-12 14:21] LABS: Magnesium 1.8 mg/dL (1.6-2.3)
[2018-11-12] MEDS ORDERED: MAGNESIUM SULFATE-D5W PMX 1 GM in DEXTROSE/WATER 1 100ML.BAG IVPB ONE (15:30)
[2018-11-12 16:58] LABS: Glucose,Whole Blood 110 mg/dL (75-99)
[2018-11-12 20:25] LABS: Glucose,Whole Blood 178 mg/dL (75-99)
[2018-11-12] MEDS: PRAVASTATIN SODIUM 20 MG TAB PO SCH (20:47)
[2018-11-12] MEDS: FERROUS SULFATE 325 MG TAB PO SCH (20:48)
[2018-11-13] MEDS: traMADol 50 MG TAB PO PRN ×2 (03:38→11:24)
[2018-11-13] MEDS: LACTATED RINGERS 1,000 ML IV SCH (04:58)
[2018-11-13 07:01] LABS: Glucose,Whole Blood 140 mg/dL (75-99)
[2018-11-13 07:18] LABS: Basophils % (A) 0 %; Eosinophils # (A) 0.2 k/uL (0-0.7); Eosinophils % (A) 2 %; HCT 29.3 % (34.0-46.0); HGB 9.7 gm/dL (11.4-16.0); Lymphocytes % (A) 25 %; MCH 29.8 pg (25.0-35.0); MCV 90.4 fL (80.0-100.0); Mean Platelet Volume 9.7; Monocytes # (A) 0.5 k/uL (0-1.0); Monocytes % (A) 7 %; Neutrophils # (A) 4.8 k/uL (1.3-7.7); Neutrophils % (A) 63 %; Platelet Count 189 k/uL (150-450); RBC 3.24 m/uL (3.80-5.40); RDW 14.1 % (11.5-15.5); WBC 7.7 k/uL (3.8-10.6)
[2018-11-13 07:43] LABS: Albumin 3.1 g/dL (3.5-5.0); Calcium 9.3 mg/dL (8.4-10.2); Magnesium 1.9 mg/dL (1.6-2.3); Potassium 4.4 mmol/L (3.5-5.1); Total Bilirubin 0.6 mg/dL (0.2-1.3); Total Protein 5.8 g/dL (6.3-8.2)
[2018-11-13] MEDS: HYDROcodone/APAP 5-325MG 1 EACH TAB PO PRN ×3 (07:56→21:09)
[2018-11-13] MEDS: INSULIN ASPART (NovoLOG) 100 UNIT/ML VIAL SQ SCH ×4 (07:57→21:07)
[2018-11-13] MEDS: FERROUS SULFATE 325 MG TAB PO SCH ×2 (07:57→21:09)
[2018-11-13] MEDS: CHOLECALCIFEROL 1,000 UNIT TAB PO SCH (07:57)
[2018-11-13] MEDS: metFORMIN 500 MG TAB PO SCH (07:58)
[2018-11-13] MEDS: LISINOPRIL-HCTZ 20-25 MG 1 EACH TAB PO SCH (07:58)
[2018-11-13] MEDS: METOPROLOL SUCCINATE (ER) 25 MG TAB.ER.24H PO SCH (07:58)
[2018-11-13] MEDS: FAMOTIDINE 20 MG TAB PO SCH (07:58)
[2018-11-13] MEDS: ENOXAPARIN 30 MG/0.3 ML SYRINGE SQ SCH ×2 (07:58→21:08)
[2018-11-13] MEDS: VIT A,C & E-LUTEIN-MINERALS 1 EACH TAB PO SCH ×2 (08:03→21:09)
--- NOTE | 2018-11-13 08:26 | P.PN ---
Subjective Progress Note Date: 11/13/18 Principal diagnosis: Status post right total knee arthroplasty Patient evaluated at bedside, she is resting comfortably. Patient was not discharge last night, she had a episode of tachycardia. Medicine wanted one more night for observation. She feels better today, she seems ready for discharge. She denies any chest pain or shortness of breath. Objective - Vital Signs Vital signs: Vital Signs Temp 99.1 F 11/13/18 07:00 Pulse 83 11/13/18 07:00 Resp 16 11/13/18 07:00 BP 114/74 11/13/18 07:00 Pulse Ox 95 11/13/18 07:00 Intake & Output 11/12/18 11/13/18 11/13/18 18:59 06:59 18:59 Other: Voiding Method Bedside Commode # Voids 2 1 # Bowel Movements 1 - Exam Right lower extremity: Incision is clean, dry, and intact. The exofin fusion tape is in good condition. There is minimal soft tissue swelling and ecchymosis surrounding the medial and lateral aspects of the incision. Calf is soft, no tenderness with palpation. Plantar flexion, dorsiflexion, EHL, FHL are intact. Sensory exam to light touch throughout the extremity is intact, dorsal pedis pulses 2+. - Labs CBC & Chem 7: 11/13/18 06:41 11/13/18 06:41 Labs: Abnormal Lab Results - Last 24 Hours (Table) 11/12/18 11/12/18 11/12/18 Range/Units 09:11 09:11 11:40 RBC 3.25 L (3.80-5.40) m/uL Hgb 9.9 L (11.4-16.0) gm/dL Hct 29.8 L (34.0-46.0) % BUN 20 H (7-17) mg/dL Glucose 141 H (74-99) mg/dL POC Glucose (mg/dL) 122 H (75-99) mg/dL Total Protein 5.5 L (6.3-8.2) g/dL Albumin 3.0 L (3.5-5.0) g/dL 11/12/18 11/12/18 11/13/18 Range/Units 16:45 20:23 06:41 RBC 3.24 L (3.80-5.40) m/uL Hgb 9.7 L (11.4-16.0) gm/dL Hct 29.3 L (34.0-46.0) % BUN (7-17) mg/dL Glucose (74-99) mg/dL POC Glucose (mg/dL) 110 H 178 H (75-99) mg/dL Total Protein (6.3-8.2) g/dL Albumin (3.5-5.0) g/dL 11/13/18 11/13/18 Range/Units 06:41 06:50 RBC (3.80-5.40) m/uL Hgb (11.4-16.0) gm/dL Hct (34.0-46.0) % BUN 21 H (7-17) mg/dL Glucose 127 H (74-99) mg/dL POC Glucose (mg/dL) 140 H (75-99) mg/dL Total Protein 5.8 L (6.3-8.2) g/dL Albumin 3.1 L (3.5-5.0) g/dL Assessment and Plan Plan: Assessment: Postoperative day #4 status post right total knee arthroplasty Plan: Pain control, continue oral medication GI and DVT prophylaxis, continue current medication Wound care instructions discussed Encourage incentive spirometer Ice and elevate/use of CPM Medical recommendations Hopeful discharge to rehab today Time with Patient: Less than 30
--- NOTE | 2018-11-13 11:20 | P.CRDCN ---
History of Present Illness Consult date: 11/13/18 History of present illness: This is a 73-year-old female with history of arthritis, hypertension, hyperlipidemia and also diabetes mellitus. She has history of palpitation and also hypertension. She follows with Dr. Christine. She is being treated with metoprolol for high blood pressure. Apparently she was evaluated by monitor as an outpatient and no Sigmund arrhythmias were documented in the past. Patient has undergone orthopedic surgery and was felt to be ready to be discharged yesterday. However, patient complained of some palpitation lasting about 20 minutes. She also had mild fever. Patient was held back for one more day of observation. Hasn't had any palpitations since yesterday. EKG showed only sinus rhythm. At this point patient seemed to be cardiac was stable. She could be transferred to rehab center. Advised her to take extra dose of metoprolol as needed. These symptoms persist, may consider event monitor. Follow-up with Dr. Christine upon discharge. Patient did not complain of any chest pain. She does have systolic murmur in the aortic area which appears to be chronic Review of Systems As per the chart Past Medical History Past Medical History: GERD/Reflux, Hyperlipidemia, Hypertension, Osteoarthritis (OA) Additional Past Medical History / Comment(s): hx palpitationsm, varicose veins, hx superfiscial phlebitis, History of Any Multi-Drug Resistant Organisms: None Reported Past Surgical History: Adenoidectomy, Joint Replacement, Tonsillectomy Additional Past Surgical History / Comment(s): left hip replacement, D&C x 5, Past Anesthesia/Blood Transfusion Reactions: Motion Sickness Additional Past Anesthesia/Blood Transfusion Reaction / Comment(s): hypotensive with one surgery, Past Psychological History: Anxiety Smoking Status: Never smoker Past Alcohol Use History: Rare Past Drug Use History: None Reported - Past Family History Son(s) Family Medical History: Deep Vein Thrombosis (DVT), Pulmonary Embolus Medications and Allergies Home Medications Medication Instructions Recorded Confirmed Type Aspirin [Adult Low Dose Aspirin EC] 81 mg PO DAILY 10/29/18 11/10/18 History Cholecalciferol [Vitamin D3] 5,000 unit PO DAILY 10/29/18 11/10/18 History Ibuprofen [Advil] 600 mg PO Q8HR PRN 10/29/18 11/10/18 History Lisinopril-Hctz 20-25 mg 1 tab PO DAILY 10/29/18 11/10/18 History [Zestoretic 20-25] Metoprolol Succinate [Toprol XL] 25 mg PO DAILY 10/29/18 11/10/18 History Multivit-Min/FA/Lycopen/Lutein 1 tab PO DAILY 10/29/18 11/10/18 History [Centrum Silver Tablet] Omeprazole [PriLOSEC] 20 mg PO AC-BRKFST 10/29/18 11/10/18 History Pravastatin Sodium [Pravachol] 10 mg PO HS 10/29/18 11/10/18 History Vit C/E/Zn/Coppr/Lutein/Zeaxan 1 cap PO BID 10/29/18 11/10/18 History [Preservision Areds 2 Softgel] metFORMIN HCL [Glucophage] 1,000 mg PO QAM 10/29/18 11/10/18 History Cyclobenzaprine [Flexeril] 10 mg PO HS PRN #30 tab 11/12/18 Rx Docusate [Colace] 100 mg PO DAILY #30 capsule 11/12/18 Rx Heparin Sodium,Porcine [Heparin 5,000 unit SQ Q12HR #30 vial 11/12/18 Rx Sodium] Hydrocodone/Acetaminophen [[place] 1 - 2 each PO Q6HR PRN #56 tab 11/12/18 Rx 5-325] traMADol HCl [Ultram] 50 mg PO Q6H PRN #28 tab 11/12/18 Rx Allergies Allergy/AdvReac Type Severity Reaction Status Date / Time No Known Allergies Allergy Verified 11/10/18 07:12 Physical Exam Vitals: Vital Signs Temp Pulse Resp BP BP Pulse Ox 11/13/18 07:00 99.1 F 83 16 114/74 95 11/13/18 03:38 18 11/13/18 01:48 99.0 F 74 17 116/65 95 11/12/18 23:22 14 11/12/18 21:50 99.2 F 11/12/18 21:00 99.9 F H 11/12/18 20:01 18 11/12/18 19:11 71 17 11/12/18 18:58 101.0 F H 71 17 124/70 97 11/12/18 14:47 98.5 F 74 12 128/72 97 Intake and Output 11/12/18 11/13/18 11/13/18 22:59 06:59 14:59 Other: Voiding Method Bedside Commode # Voids 1 # Bowel Movements 1 GENERAL EXAM: Patient is alert and oriented and doesn't appear to be in any acute distress HEENT: Normocephalic. Normal reaction of pupils, equal size, normal range of extraocular motion. No erythema or exudates in the throat. NECK: No masses, no nuchal rigidity. CHEST: No chest wall deformity. LUNGS: Equal air entry with no crackles or wheeze. HEART: S1 and S2 normal, systolic murmur in the aortic area ABDOMEN: No hepatosplenomegaly, normal bowel sounds, no guarding or rigidity. SKIN: No rashes CENTRAL NERVOUS SYSTEM: No focal deficits. EXTREMITIES: No cyanosis, clubbing or edema. Results 11/13/18 06:41 11/13/18 06:41 Cardiac Enzymes 11/13/18 Range/Units 06:41 AST 15 (14-36) U/L CBC 11/13/18 Range/Units 06:41 WBC 7.7 (3.8-10.6) k/uL RBC 3.24 L (3.80-5.40) m/uL Hgb 9.7 L (11.4-16.0) gm/dL Hct 29.3 L (34.0-46.0) % Plt Count 189 (150-450) k/uL Comprehensive Metabolic Panel 11/13/18 Range/Units 06:41 Sodium 137 (137-145) mmol/L Potassium 4.4 (3.5-5.1) mmol/L Chloride 104 (98-107) mmol/L Carbon Dioxide 26 (22-30) mmol/L BUN 21 H (7-17) mg/dL Creatinine 0.89 (0.52-1.04) mg/dL Glucose 127 H (74-99) mg/dL Calcium 9.3 (8.4-10.2) mg/dL AST 15 (14-36) U/L ALT 20 (9-52) U/L Alkaline Phosphatase 51 (38-126) U/L Total Protein 5.8 L (6.3-8.2) g/dL Albumin 3.1 L (3.5-5.0) g/dL Current Medications Generic Name Dose Route Start Last Admin Trade Name Freq PRN Reason Stop Dose Admin Hydrocodone Bitart/Acetaminophen 1 each 11/09/18 16:31 11/12/18 10:26 [place] 5-325 PO 1 each Q6HR PRN Administration Pain Scale 1 to 5 Hydrocodone Bitart/Acetaminophen 2 each 11/09/18 16:35 11/13/18 07:56 [place] 5-325 PO 2 each Q6HR PRN Administration Pain Cholecalciferol 5,000 unit 11/11/18 09:00 11/13/18 07:57 Vitamin D3 PO 5,000 unit DAILY YVONNE Administration Ropivacaine 1,100 mg/ Sodium 0 mg 11/09/18 15:07 11/09/18 18:26 Chloride 330 ml MISCELLANE 1,100 mg CONTINUOUS PRN Administration Breakthrough Pain Cyclobenzaprine HCl 10 mg 11/10/18 13:05 11/10/18 21:29 Flexeril PO 10 mg HS PRN Administration Spasms Enoxaparin Sodium 30 mg 11/10/18 08:00 11/13/18 07:58 Lovenox SQ 30 mg Q12HR YVONNE Administration Famotidine 20 mg 11/10/18 09:00 11/13/18 07:58 Pepcid PO 20 mg DAILY YVONNE Administration Ferrous Sulfate 325 mg 11/12/18 21:00 11/13/18 07:57 Feosol PO 325 mg BID YVONNE Administration Lisinopril/HCTZ 1 each 11/11/18 09:00 11/13/18 07:58 Zestoretic 20-25 PO 1 each DAILY YVONNE Administration Hydromorphone HCl 0.25 mg 11/09/18 16:31 Dilaudid IVP Q3HR PRN Pain Scale 1 to 3 Hydromorphone HCl 0.5 mg 11/09/18 16:31 11/10/18 21:29 Dilaudid IVP 0.5 mg Q3HR PRN Administration Pain Scale 4 to 6 Lactated Ringer's 1,000 mls @ 40 mls/hr 11/09/18 05:56 11/13/18 04:58 Lactated Ringers IV Not Given .Q24H [facility] Insulin Aspart 0 unit 11/10/18 17:30 11/13/18 07:57 Novolog SQ Not Given ACHS [facility] Protocol Magnesium Hydroxide 2,400 mg 11/09/18 16:31 Milk Of Magnesia PO DAILY PRN Constipation Metformin HCl 1,000 mg 11/11/18 09:00 11/13/18 07:58 Glucophage PO 1,000 mg QAM YVONNE Administration Metoprolol Succinate 25 mg 11/10/18 13:15 11/13/18 07:58 Toprol Xl PO 25 mg DAILY YVONNE Administration Multivitamins 1 each 11/10/18 13:15 11/12/18 13:34 Theragran PO 1 each DAILY@1200 YVONNE Administration Multivitamins/Minerals 1 each 11/10/18 13:15 11/13/18 08:03 Ivite PO 1 each BID YVONNE Administration Naloxone HCl 0.2 mg 11/09/18 16:31 Narcan IV Q2M PRN Opioid Reversal Ondansetron HCl 4 mg 11/09/18 16:31 Zofran IVP Q8HR PRN Nausea And Vomiting Pravastatin Sodium 10 mg 11/10/18 21:00 11/12/18 20:47 Pravachol PO 10 mg HS YVONNE Administration Tramadol HCl 50 mg 11/09/18 16:31 11/13/18 03:38 Ultram PO 50 mg Q6HR PRN Administration Pain Scale 1 to 5 Intake and Output 11/12/18 11/13/18 11/13/18 22:59 06:59 14:59 Other: Voiding Method Bedside Commode # Voids 1 # Bowel Movements 1 11/13/18 06:41 11/13/18 06:41 EKG Interpretations (text) Sinus rhythm Assessment and Plan (1) Essential hypertension Current Visit: Yes Status: Acute Code(s): I10 - ESSENTIAL (PRIMARY) HYPERTENSION SNOMED Code(s): 70333405 (2) Osteoarthritis of right knee Current Visit: Yes Status: Acute Code(s): M17.11 - UNILATERAL PRIMARY OSTEOARTHRITIS, RIGHT KNEE SNOMED Code(s): 349161611271704 (3) S/P total knee arthroplasty Current Visit: Yes Status: Acute Code(s): Z96.659 - PRESENCE OF UNSPECIFIED ARTIFICIAL KNEE JOINT SNOMED Code(s): 7956355187302 (4) Palpitations Current Visit: Yes Status: Acute Code(s): R00.2 - PALPITATIONS SNOMED Code(s): 60214377 Plan: Patient had palpitations lasting about 15 minutes. By the time, EKG was performed. Patient was in sinus rhythm. His possible that patient may be having intermittent supplement, tachycardia. Patient had similar problem even prior to the surgery. At this point patient is stable. Advised her to take extra metoprolol as needed. Patient doesn't need any further investigation at this time. However, if the symptoms recur , may consider event monitor.
[2018-11-13 11:45] LABS: Glucose,Whole Blood 118 mg/dL (75-99)
--- NOTE | 2018-11-13 12:20 | P.PN ---
Subjective Progress Note Date: 11/13/18 This is a 73-year-old female, patient of Dr. Valdez. She has a known history of osteoarthritis, hypertension, hyperlipidemia and diabetes mellitus type 2. He shouldn't had a right total knee arthroplasty with Dr. Kuo yesterday. She tolerated surgery well. No complications. Estimated blood loss 50 mL. We have been consulted for medical management. Patient is still having significant pain in the right knee. Requiring IV pain medication. Orthopedics recommending that she states another day in the hospital for pain management. Patient denies any chest pain or shortness breath. Denies any nausea or vomiting. She is urinating without difficulty. She is passing gas no bowel movement yet. Anticipating discharge tomorrow On 11/11/2018 patient is alert and oriented 3 resting comfortably in chair. Patient reports she is planning for discharge to rehab now possibly tomorrow per orthopedic services. Patient did have a low-grade temp of 99.9 this AM. Will order urinary analysis. Patient denies cough or upper. Patient denies any urinary symptoms patient denies nausea vomiting or diarrhea 11/12/2018 orthopedics have cleared patient for discharge. Patient did have a low-grade temps of 99 yesterday. Urinalysis was negative. She did have a temp of 99 at 240 this morning. Heart rate also went up into the 130s around 7:00 this morning. Patient states that she felt her heart pounding. She denies any chest pain shortness of breath. She denies feeling ill. Denies any extreme pain in her knee. Denies any cough denies any burning with urination denies any diarrhea denies any vomiting. She does report 3 softer bowel movements yesterday. She is now refusing the stool softeners. She does report a history of tachycardia. Was seen by Dr. Hernandez her overlay operator in the past and had Holter monitor. Patient reports that the Holter monitor did not show any arrhythmias. 11/13/2018 patient has had no further episodes of tachycardia. She is remained on telemetry monitoring. EKG normal sinus rhythm. She has been seen evaluated by cardiology. They have cleared her for discharge. Recommend to take an extra metoprolol as needed. However, if symptoms recur cardiology will likely order an event monitor. Patient had a temp of 101 last night. Otherwise she's been having low-grade temps of 99. Chest x-rays negative. Urinalysis negative. She denies any cough, diarrhea, nausea or vomiting denies any burning with urination. Denies any sore throat or earache. Right knee there is some swelling and bruising around incision site no evidence of cellulitis. Objective - Vital Signs Vital signs: Vital Signs Temp 99.1 F 11/13/18 07:00 Pulse 83 11/13/18 07:00 Resp 16 11/13/18 07:00 BP 114/74 11/13/18 07:00 Pulse Ox 95 11/13/18 07:00 Intake & Output 11/12/18 11/13/18 11/13/18 18:59 06:59 18:59 Other: Voiding Method Bedside Commode # Voids 2 1 # Bowel Movements 1 - Exam HEENT time small white patch towards the tip Head normocephalic Neck supple Lungs clear to auscultation bilaterally no wheezing or crackles Heart regular rate and rhythm S1-S2, no rub or gallop positive murmur Abdomen is soft nontender nondistended positive bowel sounds no hepatosplenomegaly Extremities no edema. Right leg and knee is swollen. Incision site of the right knee ecchymosis noted around incision no cellulitis changes. Neuro alert and orientated to 3 - Labs CBC & Chem 7: 11/13/18 06:41 11/13/18 06:41 Labs: Abnormal Lab Results - Last 24 Hours (Table) 11/12/18 11/12/18 11/13/18 Range/Units 16:45 20:23 06:41 RBC 3.24 L (3.80-5.40) m/uL Hgb 9.7 L (11.4-16.0) gm/dL Hct 29.3 L (34.0-46.0) % BUN (7-17) mg/dL Glucose (74-99) mg/dL POC Glucose (mg/dL) 110 H 178 H (75-99) mg/dL Total Protein (6.3-8.2) g/dL Albumin (3.5-5.0) g/dL 11/13/18 11/13/18 11/13/18 Range/Units 06:41 06:50 11:33 RBC (3.80-5.40) m/uL Hgb (11.4-16.0) gm/dL Hct (34.0-46.0) % BUN 21 H (7-17) mg/dL Glucose 127 H (74-99) mg/dL POC Glucose (mg/dL) 140 H 118 H (75-99) mg/dL Total Protein 5.8 L (6.3-8.2) g/dL Albumin 3.1 L (3.5-5.0) g/dL Assessment and Plan Assessment: 1. Osteoarthritis of the right knee. Status post right total knee arthroplasty. Continue pain control per orthopedic protocol. The planning subcu heparin for DVT prophylaxis at discharge 2. Essential hypertension: Blood pressures are stable we'll continue patient's Zestoretic and metoprolol 3. Diabetes mellitus type 2: Resume patient's metformin and add sliding scale coverage. 4. Hyperlipidemia 5. Expected acute blood loss anemia secondary to surgery. Start patient on ferrous sulfate 325 mg twice a day. Monitor hemoglobin 6. Palpitations and Tachycardia: Heart rate in the 130s. EKG normal sinus rhythm. Telemetry monitoring normal sinus rhythm. Patient seen evaluated by cardiology and they've cleared her for discharge. magnesium 1.8 she received magnesium supplement magnesium now 1.9. Thyroid level normal. 7. Fever spike: Check blood culture and flu swab. She had temp of 101. White count remains normal. Chest x-ray negative urinalysis negative. Knee showing swelling and ecchymosis no cellulitis Patient is not medically stable for discharge to ECF today. I performed an examination of the patient and discussed their management with the physician Seals Engraver. I have reviewed the Physician Seals Engraver's notes and agree with the documented findings and plan of care
[2018-11-13] MEDS: MULTIVITAMINS, THERA 1 EACH TAB PO SCH (12:32)
[2018-11-13 16:43] LABS: Glucose,Whole Blood 115 mg/dL (75-99)
[2018-11-13] MEDS: PRAVASTATIN SODIUM 20 MG TAB PO SCH (21:09)
[2018-11-13 21:13] LABS: Glucose,Whole Blood 113 mg/dL (75-99)
--- NOTE | 2018-11-13 21:15 | US ---
EXAMINATION TYPE: US venous doppler duplex LE RT DATE OF EXAM: 11/13/2018 8:51 PM COMPARISON: NONE CLINICAL HISTORY: DVT. Total knee done 5 days ago, pain and swelling, h/o varicose veins, no h/o dvt SIDE PERFORMED: Right TECHNIQUE: The lower extremity deep venous system is examined utilizing real time linear array sonog reji with graded compression, doppler sonography and color-flow sonography. VESSELS IMAGED: External Iliac Vein (EIV) Common Femoral Vein Deep Femoral Vein Greater Saphenous Vein * Femoral Vein Popliteal Vein Small Saphenous Vein * Proximal Calf Veins (* superficial vessels) FINDINGS: Grayscale, color doppler, spectral doppler imaging performed of the deep veins of the lower extremities. There is normal flow, compressibility, vascular waveforms. IMPRESSION: NEGATIVE FOR DVT, RIGHT LOWER EXTREMITY.
--- NOTE | 2018-11-14 00:43 | P.CONS ---
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 The patient underwent surgical intervention without great difficulties and other than some postoperative pain was proceeding however she has a known history of some cardiac dysrhythmias and has been followed with cardiology. She developed some tachycardia postoperatively. She had also had a temperature up to 101 on 1 event and some low-grade temperatures that followed. She denies feeling relatively well except for the pain to the right leg. She's noticed some edema to the right leg distal greater than the left leg. She is asymptomatic as far as the fever and that she is not having significant chills or rigors. She is denying severe shortness of breath or cough. She has no discomforts in her chest. She has no pleuritic chest pain. She denies abdominal pain. Denies nausea or emesis. She has no dysuria. She was sitting some stool softeners and had 3 soft stools but did not have adalid diarrhea. She's had no hematochezia melena or hematemesis. Review of Systems HEENT:Denies headache or acute visual change. Denies sinus or mouth discomforts. Denies neck stiffness or pain. Denies significant oral cavity pain. Denies difficulty on swallowing. Lungs: Denies significant shortness of breath, cough, sputum production, or hemoptysis. Cardiovascular: Denies significant shortness of breath, chest pain, chest wall pain, orthopnea, dyspnea on exertion, syncope Gastrointestinal:Denies nausea, vomiting, diarrhea, constipation, hematemesis, melena, hematochezia. No no significant change of bowel habit noticed. Musculoskeletal: Pain to the left knee after surgery otherwise just some arthritic discomfort in the lower extremities Skin: Some bruising to the right knee no drainage swelling to the right leg after surgery Neuro: Denies headache or visual change. Denies any new onset weakness or difficulty with ambulation. Denies falls or seizures. Psychiatric:Denies anxiety or depression. Endocrine: Denies significant fatigue, denies significant weight loss or weight gain. Past Medical History Past Medical History: GERD/Reflux, Hyperlipidemia, Hypertension, Osteoarthritis (OA) Additional Past Medical History / Comment(s): hx palpitationsm, varicose veins, hx superfiscial phlebitis, History of Any Multi-Drug Resistant Organisms: None Reported Past Surgical History: Adenoidectomy, Joint Replacement, Tonsillectomy Additional Past Surgical History / Comment(s): left hip replacement, D&C x 5, Past Anesthesia/Blood Transfusion Reactions: Motion Sickness Additional Past Anesthesia/Blood Transfusion Reaction / Comm: hypotensive with one surgery, Past Psychological History: Anxiety Additional Psychological History / Comment(s): . 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 No recent travel. Dog in the home Smoking Status: Never smoker Past Alcohol Use History: Rare Past Drug Use History: None Reported - Past Family History Son(s) Family Medical History: Deep Vein Thrombosis (DVT), Pulmonary Embolus Medications and Allergies Home Medications and Allergies Comment(s): Current Medications Hydrocodone Bitart/Acetaminophen ([place] 5-325) 1 each PO Q6HR PRN PRN Reason: Pain Scale 1 to 5 Last Admin: 11/12/18 10:26 Dose: 1 each Documented by: Hydrocodone Bitart/Acetaminophen ([place] 5-325) 2 each PO Q6HR PRN PRN Reason: Pain Last Admin: 11/13/18 21:09 Dose: 2 each Documented by: Cholecalciferol (Vitamin D3) 5,000 unit PO DAILY [facility] Last Admin: 11/13/18 07:57 Dose: 5,000 unit Documented by: Ropivacaine 1,100 mg/ Sodium (Chloride 330 ml) 0 mg MISCELLANE CONTINUOUS PRN PRN Reason: Breakthrough Pain Last Admin: 11/09/18 18:26 Dose: 1,100 mg Documented by: Cyclobenzaprine HCl (Flexeril) 10 mg PO HS PRN PRN Reason: Spasms Last Admin: 11/10/18 21:29 Dose: 10 mg Documented by: Enoxaparin Sodium (Lovenox) 30 mg SQ Q12HR [facility] Last Admin: 11/13/18 21:08 Dose: 30 mg Documented by: Famotidine (Pepcid) 20 mg PO DAILY [facility] Last Admin: 11/13/18 07:58 Dose: 20 mg Documented by: Ferrous Sulfate (Feosol) 325 mg PO BID [facility] Last Admin: 11/13/18 21:09 Dose: 325 mg Documented by: Lisinopril/HCTZ (Zestoretic 20-25) 1 each PO DAILY [facility] Last Admin: 11/13/18 07:58 Dose: 1 each Documented by: Hydromorphone HCl (Dilaudid) 0.25 mg IVP Q3HR PRN PRN Reason: Pain Scale 1 to 3 Hydromorphone HCl (Dilaudid) 0.5 mg IVP Q3HR PRN PRN Reason: Pain Scale 4 to 6 Last Admin: 11/10/18 21:29 Dose: 0.5 mg Documented by: Lactated Ringer's (Lactated Ringers) 1,000 mls @ 40 mls/hr IV .Q24H [facility] Last Admin: 11/13/18 04:58 Dose: Not Given Documented by: Insulin Aspart (Novolog) 0 unit SQ [facility]; Protocol Last Admin: 11/13/18 21:07 Dose: Not Given Documented by: Magnesium Hydroxide (Milk Of Magnesia) 2,400 mg PO DAILY PRN PRN Reason: Constipation Metformin HCl (Glucophage) 1,000 mg PO QAM [facility] Last Admin: 11/13/18 07:58 Dose: 1,000 mg Documented by: Metoprolol Succinate (Toprol Xl) 25 mg PO DAILY [facility] Last Admin: 11/13/18 07:58 Dose: 25 mg Documented by: Multivitamins (Theragran) 1 each PO DAILY@1200 [facility] Last Admin: 11/13/18 12:32 Dose: 1 each Documented by: Multivitamins/Minerals (Ivite) 1 each PO BID [facility] Last Admin: 11/13/18 21:09 Dose: 1 each Documented by: Naloxone HCl (Narcan) 0.2 mg IV Q2M PRN PRN Reason: Opioid Reversal Ondansetron HCl (Zofran) 4 mg IVP Q8HR PRN PRN Reason: Nausea And Vomiting Pravastatin Sodium (Pravachol) 10 mg PO HS [facility] Last Admin: 11/13/18 21:09 Dose: 10 mg Documented by: Tramadol HCl (Ultram) 50 mg PO Q6HR PRN PRN Reason: Pain Scale 1 to 5 Last Admin: 11/13/18 11:24 Dose: 50 mg Documented by: Home Medications Medication Instructions Recorded Confirmed Type Aspirin [Adult Low Dose Aspirin EC] 81 mg PO DAILY 10/29/18 11/10/18 History Cholecalciferol [Vitamin D3] 5,000 unit PO DAILY 10/29/18 11/10/18 History Ibuprofen [Advil] 600 mg PO Q8HR PRN 10/29/18 11/10/18 History Lisinopril-Hctz 20-25 mg 1 tab PO DAILY 10/29/18 11/10/18 History [Zestoretic 20-25] Metoprolol Succinate [Toprol XL] 25 mg PO DAILY 10/29/18 11/10/18 History Multivit-Min/FA/Lycopen/Lutein 1 tab PO DAILY 10/29/18 11/10/18 History [Centrum Silver Tablet] Omeprazole [PriLOSEC] 20 mg PO AC-BRKFST 10/29/18 11/10/18 History Pravastatin Sodium [Pravachol] 10 mg PO HS 10/29/18 11/10/18 History Vit C/E/Zn/Coppr/Lutein/Zeaxan 1 cap PO BID 10/29/18 11/10/18 History [Preservision Areds 2 Softgel] metFORMIN HCL [Glucophage] 1,000 mg PO QAM 10/29/18 11/10/18 History Cyclobenzaprine [Flexeril] 10 mg PO HS PRN #30 tab 11/12/18 Rx Docusate [Colace] 100 mg PO DAILY #30 capsule 11/12/18 Rx Heparin Sodium,Porcine [Heparin 5,000 unit SQ Q12HR #30 vial 11/12/18 Rx Sodium] Hydrocodone/Acetaminophen [[place] 1 - 2 each PO Q6HR PRN #56 tab 11/12/18 Rx 5-325] traMADol HCl [Ultram] 50 mg PO Q6H PRN #28 tab 11/12/18 Rx Allergies Allergy/AdvReac Type Severity Reaction Status Date / Time No Known Allergies Allergy Verified 11/10/18 07:12 Physical Exam Vitals: Vital Signs Temp Pulse Resp BP Pulse Ox 11/13/18 14:43 98.9 F 83 16 111/74 92 L 11/13/18 07:00 99.1 F 83 16 114/74 95 11/13/18 03:38 18 11/13/18 01:48 99.0 F 74 17 116/65 95 Intake and Output 11/13/18 11/13/18 11/14/18 14:59 22:59 06:59 Intake Total 480 Balance 480 Intake: Oral 480 Other: # Voids 3 3 # Bowel Movements 1 Pleasant 73-year-old woman in no acute distress HEENT: Anicteric conjunctiva are pink and moist nasal mucosa grossly intact without significant lesions, there is no thrush. Neck: The neck is supple without significant lymphadenopathy or thyromegaly. Lungs: Good bilateral air entry without significant crackles or wheezing. There is no significant bronchial sounds. There is no egophony or dullness. Heart: Regular rate and rhythm with an audible S1-S2, no S3 no S4. There is no significant murmur click or rub, PMI was nondisplaced. Abdomen: Positive bowel sounds soft and nontender without palpable masses or organomegaly. There was no guarding or rebound. Extremities: The upper extremities have excellent pulses they are symmetric, no significant petechiae or telangiectasia. No splinter hemorrhages were noted. The right lower extremity reveals evidence of the surgical intervention. The surgical site is intact. Minimal postoperative changes without significant erythema. There is no ascending erythema or lymphangitis. No tenderness to the right inguinal lymph node. No other lymphadenopathy the right calf is somewhat larger in size compared to the left. Neuro: Awake alert oriented to person place and time. There are no acute new gross focal sensory motor deficits. Results CBC & Chem 7: 11/13/18 06:41 11/13/18 06:41 Labs: Abnormal Lab Results - Last 24 Hours (Table) 11/13/18 11/13/18 11/13/18 Range/Units 06:41 06:41 06:50 RBC 3.24 L (3.80-5.40) m/uL Hgb 9.7 L (11.4-16.0) gm/dL Hct 29.3 L (34.0-46.0) % BUN 21 H (7-17) mg/dL Glucose 127 H (74-99) mg/dL POC Glucose (mg/dL) 140 H (75-99) mg/dL Total Protein 5.8 L (6.3-8.2) g/dL Albumin 3.1 L (3.5-5.0) g/dL 11/13/18 11/13/18 11/13/18 Range/Units 11:33 16:42 21:02 RBC (3.80-5.40) m/uL Hgb (11.4-16.0) gm/dL Hct (34.0-46.0) % BUN (7-17) mg/dL Glucose (74-99) mg/dL POC Glucose (mg/dL) 118 H 115 H 113 H (75-99) mg/dL Total Protein (6.3-8.2) g/dL Albumin (3.5-5.0) g/dL Laboratory Results WBC 7.7 k/uL (3.8-10.6) 11/13/18 06:41 RBC 3.24 m/uL (3.80-5.40) L 11/13/18 06:41 Hgb 9.7 gm/dL (11.4-16.0) L 11/13/18 06:41 Hct 29.3 % (34.0-46.0) L 11/13/18 06:41 MCV 90.4 fL (80.0-100.0) 11/13/18 06:41 MCH 29.8 pg (25.0-35.0) 11/13/18 06:41 MCHC 33.0 g/dL (31.0-37.0) 11/13/18 06:41 RDW 14.1 % (11.5-15.5) 11/13/18 06:41 Plt Count 189 k/uL (150-450) 11/13/18 06:41 Neutrophils % 63 % 11/13/18 06:41 Lymphocytes % 25 % 11/13/18 06:41 Monocytes % 7 % 11/13/18 06:41 Eosinophils % 2 % 11/13/18 06:41 Basophils % 0 % 11/13/18 06:41 Neutrophils # 4.8 k/uL (1.3-7.7) 11/13/18 06:41 Lymphocytes # 2.0 k/uL (1.0-4.8) 11/13/18 06:41 Monocytes # 0.5 k/uL (0-1.0) 11/13/18 06:41 Eosinophils # 0.2 k/uL (0-0.7) 11/13/18 06:41 Basophils # 0.0 k/uL (0-0.2) 11/13/18 06:41 Sodium 137 mmol/L (137-145) 11/13/18 06:41 Potassium 4.4 mmol/L (3.5-5.1) 11/13/18 06:41 Chloride 104 mmol/L (98-107) 11/13/18 06:41 Carbon Dioxide 26 mmol/L (22-30) 11/13/18 06:41 Anion Gap 7 mmol/L 11/13/18 06:41 BUN 21 mg/dL (7-17) H 11/13/18 06:41 Creatinine 0.89 mg/dL (0.52-1.04) 11/13/18 06:41 Est GFR (CKD-EPI)AfAm 74 (>60 ml/min/1.73 sqM) 11/13/18 06:41 Est GFR (CKD-EPI)NonAf 65 (>60 ml/min/1.73 sqM) 11/13/18 06:41 Glucose 127 mg/dL (74-99) H 11/13/18 06:41 POC Glucose (mg/dL) 113 mg/dL (75-99) H 11/13/18 21:02 POC Glu [place] [facility] ID Lisa, Heidy 11/13/18 21:02 Calcium 9.3 mg/dL (8.4-10.2) 11/13/18 06:41 Magnesium 1.9 mg/dL (1.6-2.3) 11/13/18 06:41 Total Bilirubin 0.6 mg/dL (0.2-1.3) 11/13/18 06:41 AST 15 U/L (14-36) 11/13/18 06:41 ALT 20 U/L (9-52) 11/13/18 06:41 Alkaline Phosphatase 51 U/L (38-126) 11/13/18 06:41 Total Protein 5.8 g/dL (6.3-8.2) L 11/13/18 06:41 Albumin 3.1 g/dL (3.5-5.0) L 11/13/18 06:41 TSH 1.200 mIU/L (0.465-4.680) 11/12/18 13:42 Urine Color Yellow 11/11/18 13:00 Urine Appearance Clear (Clear) 11/11/18 13:00 Urine pH 6.5 (5.0-8.0) 11/11/18 13:00 Ur Specific [place] 1.015 (1.001-1.035) 11/11/18 13:00 Urine Protein Negative (Negative) 11/11/18 13:00 Urine Glucose (UA) Negative (Negative) 11/11/18 13:00 Urine Ketones Negative (Negative) 11/11/18 13:00 Urine Blood Negative (Negative) 11/11/18 13:00 Urine Nitrite Negative (Negative) 11/11/18 13:00 Urine Bilirubin Negative (Negative) 11/11/18 13:00 Urine Urobilinogen <2.0 mg/dL (<2.0) 11/11/18 13:00 Ur Leukocyte Esterase Negative (Negative) 11/11/18 13:00 Influenza Type A RNA Not Detected (Not Detectd) 11/13/18 19:35 Influenza Type B (PCR) Not Detected (Not Detectd) 11/13/18 19:35 Assessment and Plan (1) Osteoarthritis of right knee Current Visit: Yes Status: Acute Code(s): M17.11 - UNILATERAL PRIMARY OSTEOARTHRITIS, RIGHT KNEE SNOMED Code(s): 942764217296251 (2) S/P total knee arthroplasty Current Visit: Yes Status: Acute Code(s): Z96.659 - PRESENCE OF UNSPECIFIED ARTIFICIAL KNEE JOINT SNOMED Code(s): 9756608351120 (3) Fever Narrative/Plan: Very pleasant 73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 Postoperatively she was doing well but developed some palpitations. Workup has not revealed any acute difficulties but then she developed a fever. She's had one temperature 101 other than that she has had significant fevers. She's feeling relatively well this evening with no other new symptoms. She has no localizing symptoms except for some swelling to the right leg. Given the total knee arthroplasty a duplex will be performed to assure that there is no difficulty. Otherwise is no evidence of cellulitis. She has no evidence of any pulmonary infection. She has no evidence of urinary infection. Influenza testing to be done although she is asymptomatic as far as influenza. No need for antibiotic therapy at this time and she'll be monitored with fevers are already improved. Current Visit: Yes Status: Acute Code(s): R50.9 - FEVER, UNSPECIFIED SNOMED Code(s): 270786520
[2018-11-14 02:30] VITALS: RESP 16
[2018-11-14] MEDS: traMADol 50 MG TAB PO PRN ×2 (03:19→09:38)
[2018-11-14] MEDS: HYDROcodone/APAP 5-325MG 1 EACH TAB PO PRN ×2 (06:10→12:36)
[2018-11-14 07:06] LABS: Glucose,Whole Blood 155 mg/dL (75-99)
[2018-11-14 08:08] VITALS: BP 96/61; PULSE 90; TEMP 98.9
[2018-11-14 08:58] LABS: Basophils % (A) 1 %; Eosinophils # (A) 0.2 k/uL (0-0.7); Eosinophils % (A) 3 %; HCT 29.6 % (34.0-46.0); HGB 9.7 gm/dL (11.4-16.0); Lymphocytes # (A) 1.5 k/uL (1.0-4.8); Lymphocytes % (A) 25 %; MCH 29.8 pg (25.0-35.0); MCHC 32.9 g/dL (31.0-37.0); MCV 90.4 fL (80.0-100.0); Mean Platelet Volume 10.2; Monocytes # (A) 0.4 k/uL (0-1.0); Monocytes % (A) 6 %; Neutrophils # (A) 3.7 k/uL (1.3-7.7); Neutrophils % (A) 62 %; Platelet Count 243 k/uL (150-450); RBC 3.27 m/uL (3.80-5.40); RDW 15.2 % (11.5-15.5)
[2018-11-14 09:10] LABS: Albumin 3.2 g/dL (3.5-5.0); Calcium 9.4 mg/dL (8.4-10.2); Potassium 4.2 mmol/L (3.5-5.1); Total Bilirubin 0.7 mg/dL (0.2-1.3)
--- NOTE | 2018-11-14 09:25 | P.PN ---
Progress Note - Text Progress Note Date: 11/14/18 Patient seen lying in bed comfortably. No new complaints. Incision stable. Homans and Yared negative. Distal neurovascular exam is intact. Impression: Status post right total knee arthroplasty Plan: Transfer to rehab today
[2018-11-14] MEDS: VIT A,C & E-LUTEIN-MINERALS 1 EACH TAB PO SCH (09:37)
[2018-11-14] MEDS: CHOLECALCIFEROL 1,000 UNIT TAB PO SCH (09:38)
[2018-11-14] MEDS: LACTATED RINGERS 1,000 ML IV SCH (09:38)
[2018-11-14] MEDS: FAMOTIDINE 20 MG TAB PO SCH (09:39)
[2018-11-14] MEDS: ENOXAPARIN 30 MG/0.3 ML SYRINGE SQ SCH (09:39)
[2018-11-14] MEDS: INSULIN ASPART (NovoLOG) 100 UNIT/ML VIAL SQ SCH ×2 (09:39→13:39)
[2018-11-14] MEDS: FERROUS SULFATE 325 MG TAB PO SCH (09:40)
[2018-11-14] MEDS: LISINOPRIL-HCTZ 20-25 MG 1 EACH TAB PO SCH (09:40)
[2018-11-14] MEDS: metFORMIN 500 MG TAB PO SCH (09:40)
[2018-11-14] MEDS: METOPROLOL SUCCINATE (ER) 25 MG TAB.ER.24H PO SCH (09:52)
--- NOTE | 2018-11-14 11:31 | P.DS ---
Providers Date of admission: 11/11/18 09:23 Expected date of discharge: 11/14/18 Attending physician: Quinn Kuo Consults: 11/09/18 16:36 Consult Physician Routine Consulting Provider: Ysabel Valdez Consult Reason/Comments: Medical Management Do you want consulting provider notified?: Yes 11/09/18 19:40 Consult Physician Routine Consulting Provider: Christina Patel Consult Reason/Comments: medicla management Do you want consulting provider notified?: Yes 11/12/18 13:30 Consult Physician Routine Consulting Provider: Avi Christine Consult Reason/Comments: Tachycardia Do you want consulting provider notified?: Yes 11/13/18 13:15 Consult Physician Routine Consulting Provider: Lucas Gant Consult Reason/Comments: fever Do you want consulting provider notified?: Yes Primary care physician: Ysabel Valdez Hospital Course: Diagnoses on discharge: 1. Osteoarthritis of the right knee. Status post right total knee arth roplasty. Continue pain control per orthopedic protocol. The planning subcu heparin for DVT prophylaxis at discharge 2. Essential hypertension: Blood pressures are stable we'll continue patient's Zestoretic and metoprolol 3. Diabetes mellitus type 2: Resume patient's metformin and add sliding scale coverage. 4. Hyperlipidemia 5. Expected acute blood loss anemia secondary to surgery. Start patient on ferrous sulfate 325 mg twice a day. Monitor hemoglobin 6. Palpitations and Tachycardia: Heart rate in the 130s. EKG normal sinus rhythm. Telemetry monitoring normal sinus rhythm. Patient seen evaluated by cardiology and they've cleared her for discharge. magnesium 1.8 she received magnesium supplement magnesium now 1.9. Thyroid level normal. 7. Fever spike: Check blood culture and flu swab. She had temp of 101. White count remains normal. Chest x-ray negative urinalysis negative. Knee showing swelling and ecchymosis no cellulitis Hospital course: This is a 73-year-old female, patient of Dr. Valdez. She has a known history of osteoarthritis, hypertension, hyperlipidemia and diabetes mellitus type 2. He shouldn't had a right total knee arthroplasty with Dr. Kuo yesterday. She tolerated surgery well. No complications. Estimated blood loss 50 mL. We have been consulted for medical management. Patient is still having significant pain in the right knee. Requiring IV pain medication. Orthopedics recommending that she states another day in the hospital for pain management. Patient denies any chest pain or shortness breath. Denies any nausea or vomiting. She is urinating without difficulty. She is passing gas no bowel movement yet. Anticipating discharge tomorrow On 11/11/2018 patient is alert and oriented 3 resting comfortably in chair. Patient reports she is planning for discharge to rehab now possibly tomorrow per orthopedic services. Patient did have a low-grade temp of 99.9 this AM. Will o rder urinary analysis. Patient denies cough or upper. Patient denies any urinary symptoms patient denies nausea vomiting or diarrhea 11/12/2018 orthopedics have cleared patient for discharge. Patient did have a low-grade temps of 99 yesterday. Urinalysis was negative. She did have a temp of 99 at 240 this morning. Heart rate also went up into the 130s around 7:00 this morning. Patient states that she felt her heart pounding. She denies any chest pain shortness of breath. She denies feeling ill. Denies any extreme pain in her knee. Denies any cough denies any burning with urination denies any diarrhea denies any vomiting. She does report 3 softer bowel movements yesterday. She is now refusing the stool softeners. She does report a history of tachycardia. Was seen by Dr. Hernandez her certified low vision therapist in the past and had Holter monitor. Patient reports that the Holter monitor did not show any arrhythmias. 11/13/2018 patient has had no further episodes of tachycardia. She is remained on telemetry monitoring. EKG normal sinus rhythm. She has been seen evaluated by cardiology. They have cleared her for discharge. Recommend to take an extra metoprolol as needed. However, if symptoms recur cardiology will likely order an event monitor. Patient had a temp of 101 last night. Otherwise she's been having low-grade temps of 99. Chest x-rays negative. Urinalysis negative. She denies any cough, diarrhea, nausea or vomiting denies any burning with urination. Denies any sore throat or earache. Right knee there is some swelling and bruising around incision site no evidence of cellulitis. On 11/14/2018 Patient was seen and examined on the medical floor. She is alert and oriented 3 in no apparent distress there are no new episodes of fever temperature this morning 98.7 there is no chills no headache no dizziness no chest pain no shortness of breath no cough no nausea or vomiting no abdominal pain no diarrhea and no urinary symptoms she is scheduled to be transferred to rehab at [facility]. Patient Condition at Discharge: Good Plan - Discharge Summary Discharge Rx Participant: Yes New Discharge Prescriptions: New Docusate [Colace] 100 mg PO DAILY #30 capsule Heparin Sodium,Porcine [Heparin Sodium] 5,000 unit SQ Q12HR #30 vial Hydrocodone/Acetaminophen [[place] 5-325] 1 - 2 each PO Q6HR PRN #56 tab PRN Reason: Pain traMADol HCl [Ultram] 50 mg PO Q6H PRN #28 tab PRN Reason: Pain Cyclobenzaprine [Flexeril] 10 mg PO HS PRN #30 tab PRN Reason: Spasms No Action metFORMIN HCL [Glucophage] 1,000 mg PO QAM Vit C/E/Zn/Coppr/Lutein/Zeaxan [Preservision Areds 2 Softgel] 1 cap PO BID Pravastatin Sodium [Pravachol] 10 mg PO HS Omeprazole [PriLOSEC] 20 mg PO AC-BRKFST Multivit-Min/FA/Lycopen/Lutein [Centrum Silver Tablet] 1 tab PO DAILY Metoprolol Succinate [Toprol XL] 25 mg PO DAILY Lisinopril-Hctz 20-25 mg [Zestoretic 20-25] 1 tab PO DAILY Cholecalciferol [Vitamin D3] 5,000 unit PO DAILY Aspirin [Adult Low Dose Aspirin EC] 81 mg PO DAILY Ibuprofen [Advil] 600 mg PO Q8HR PRN PRN Reason: Pain Discharge Medication List Aspirin [Adult Low Dose Aspirin EC] 81 mg PO DAILY 10/29/18 [History] Cholecalciferol [Vitamin D3] 5,000 unit PO DAILY 10/29/18 [History] Ibuprofen [Advil] 600 mg PO Q8HR PRN 10/29/18 [History] Lisinopril-Hctz 20-25 mg [Zestoretic 20-25] 1 tab PO DAILY 10/29/18 [History] Metoprolol Succinate [Toprol XL] 25 mg PO DAILY 10/29/18 [History] Multivit-Min/FA/Lycopen/Lutein [Centrum Silver Tablet] 1 tab PO DAILY 10/29/18 [History] Omeprazole [PriLOSEC] 20 mg PO AC-BRKFST 10/29/18 [History] Pravastatin Sodium [Pravachol] 10 mg PO HS 10/29/18 [History] Vit C/E/Zn/Coppr/Lutein/Zeaxan [Preservision Areds 2 Softgel] 1 cap PO BID 10/29/18 [History] metFORMIN HCL [Glucophage] 1,000 mg PO QAM 10/29/18 [History] Cyclobenzaprine [Flexeril] 10 mg PO HS PRN #30 tab 11/12/18 [Rx] Docusate [Colace] 100 mg PO DAILY #30 capsule 11/12/18 [Rx] Heparin Sodium,Porcine [Heparin Sodium] 5,000 unit SQ Q12HR #30 vial 11/12/18 [Rx] Hydrocodone/Acetaminophen [[place] 5-325] 1 - 2 each PO Q6HR PRN #56 tab 11/12/18 [Rx] traMADol HCl [Ultram] 50 mg PO Q6H PRN #28 tab 11/12/18 [Rx] Follow up Appointment(s)/Referral(s): Ysabel Valdez MD [Primary Care Provider] - 11/19/18 1:15 pm [facility],Equipment [NON-STAFF] - As Needed (Continuous Passive Motion knee machine) [facility], [NON-STAFF] - As Needed [place] PAC [PHYSICIAN ENROLLMENT COORDINATOR] - 11/25/18 2:50 pm [facility], [NON-STAFF] - As Needed Activity/Diet/Wound Care/Special Instructions: Please call [facility] in order for them to deliver Continuous Passive Motion (CPM) knee machine today: #[phone] Orthopedic Discharge Instructions: 1. Wound care and infection precautions, keep incision dry and covered while showering, no lotions, creams, moisturizers. No soaking, pools, hot tubs. Do not scrub over incision. 2. Weight-bear as tolerated with walker / cane until follow-up. 3. Ice and elevate when necessary. Do not exceed 20 minutes per hour with ice pack. 4. Utilize compression sleeve until seen at first follow up appointment. 5. Pain meds and anticoagulants per prescription. 6. Pain medication has potential to cause constipation. Increase oral fluid and fiber intake. Contact primary care provider if you have not had a bowel movement within 48 hours after discharge. 7. No anti-inflammatory medication until discussed at first post operative visit, this including Motrin, Aleve, Mobic, Diclofenac. 8. Follow up in office at 2 weeks postop with Devon Carbajal PA-C 9. Follow up with your primary care doctor 7-10 days after discharge. 10. Contact [facility] with any questions, . Anticoagulation instructions: 1. Please utilize heparin 5000 units subcu every 12 hours rehab 2. Discontinue heparin when discharged home, patient will then begin aspirin 81 mg twice a day Discharge Disposition: TRANSFER TO SNF/ECF
[2018-11-14 11:47] LABS: Glucose,Whole Blood 107 mg/dL (75-99)
[2018-11-14] MEDS: MULTIVITAMINS, THERA 1 EACH TAB PO SCH (13:38)
== END 2018-11-14 14:01 | DRG 940 ==
LOC: OR 13:48 → 4SSUR 19:02 → OR 11-10 04:35 → 4SSUR 11-10 04:36 → OBSVTOIN 11-11 09:23
PROVIDERS: ADMIT Orthopaedic Surgery; ATTEND Orthopaedic Surgery
PROC: 0SRC0J9 Replacement of Right Knee Joint with Synthetic Substitute, Cemented, Open Approach (ICD-10-PCS; principal; 2018-11-09 15:35)
DX: G89.18 Other acute postprocedural pain (principal); D62 Acute posthemorrhagic anemia; M17.11 Unilateral primary osteoarthritis, right knee; E11.9 Type 2 diabetes mellitus without complications; R50.9 Fever, unspecified; R00.0 Tachycardia, unspecified; I10 Essential (primary) hypertension; E78.5 Hyperlipidemia, unspecified; I83.90 Asymptomatic varicose veins of unspecified lower extremity; K21.9 Gastro-esophageal reflux disease without esophagitis; Z79.84 Long term (current) use of oral hypoglycemic drugs; Z79.82 Long term (current) use of aspirin; Z79.899 Other long term (current) drug therapy; Z86.72 Personal history of thrombophlebitis; Z96.642 Presence of left artificial hip joint; Z86.59 Personal history of other mental and behavioral disorders; Z82.49 Family history of ischemic heart disease and other diseases of the circulatory system
CPT/HCPCS: 71046; 80048; 80053; 81003; 83735; 84443; 85025; 87040; 87502; 88300

== ENCOUNTER → 2022-01-16 | Outpatient (CLI) | payer MEDICARE, BC ==
--- NOTE | 2022-01-21 10:39 | MM ---
Reason for Exam: Clinical finding. Last mammogram was performed 3 year(s) and 4 month(s) ago. Patient History: Menarche at age 14. First Full-Term at age 22. Postmenopausal. Patient used Hormonal Contraceptives for 5 years. Risk Values: Chayito 5 year model risk: 1.4%. NCI Lifetime model risk: 2.9%. Prior Study Comparison: 03/01/2015 Bilateral Screening Mammogram, [facility]. 05/02/2016 Bilateral Screening Mammogram, [facility]. 09/18/2018 Bilateral Screening Mammogram, [facility]. Tissue Density: The breast tissue is heterogeneously dense. This may lower the sensitivity of mammography. Findings: Finding 1: Solitary Dilated Duct. Laterality: Right. Mammogram No solid or cystic masses seen. Findings: The lower inner quadrant of the left breast was scanned. Hyperechoic lesion left 7:00 position measuring 1 cm compatible with lipoma. No solid or cystic masses otherwise seen. Overall Assessment: Benign, BI-RAD 2 Assessment: MG 3D diag mammo w/cad SEAMUS - Bilateral: Incomplete: need additional imaging evaluation, BI-RAD 0 - Left. US breast limited LT - Left: Benign, BI-RAD 2. Management: Screening Mammogram of both breasts in 1 year. A clinical breast exam by your physician is recommended on an annual basis and results should be correlated with mammographic findings. Results were given to the patient verbally at the time of exam. Electronically signed and approved by: Carrington Montgomery M.D. Radiologis
== END | disposition home or self-care (01) ==
LOC: RADMAMWWP 12:53
PROVIDERS: ATTEND Family Medicine
DX: N64.89 Other specified disorders of breast (principal); Z78.0 Asymptomatic menopausal state
CPT/HCPCS: 77066; 76642; G0279; 77062

== ENCOUNTER → 2022-01-31 | Outpatient (CLI) | payer MEDICARE, BC ==
[2022-01-31 18:34] LABS: HCT 37.3 % (37.2-46.3); HGB 11.9 g/dL (12.0-15.0); MCH 30.6 pg (27.0-32.0); MCHC 31.9 g/dL (32.0-37.0); MCV 95.9 fL (80.0-97.0); Mean Platelet Volume 11.1 fL (9.5-12.2); NRBC Per 100 WBC 0 /100 WBCS (0.0-0.0); Platelet Count 211 X 10*3/uL (140-440); RBC 3.89 X 10*6/uL (4.10-5.20); RDW 12.7 % (11.5-14.5)
[2022-01-31 18:55] LABS: Anion Gap 13.4 mmol/L (10.00-18.00); BUN/Creat Ratio 33.13 Ratio (12.00-20.00); Blood Urea Nitrogen 26.5 mg/dL (9.0-27.0); Carbon Dioxide 24.6 mmol/L (20.0-27.5); Non-African American GFR(CKD) 71.6 (60.0-200.0); Potassium 4.4 mmol/L (3.5-5.5)
== END | disposition home or self-care (01) ==
LOC: LABWHC1 12:03
PROVIDERS: ATTEND Internal Medicine Cardiovascular Disease
DX: I10 Essential (primary) hypertension (principal); R00.2 Palpitations
CPT/HCPCS: 36415; 80048; 84443; 85027

== ENCOUNTER → 2023-04-29 | Outpatient (CLI) | payer BC ==
--- NOTE | 2023-05-01 09:28 | MM ---
Reason for Exam: Screening (asymptomatic). Last mammogram was performed 1 year(s) and 3 month(s) ago. Patient History: Menarche at age 14. First Full-Term at age 22. Postmenopausal. Patient used Hormonal Contraceptives for 5 years. Risk Values: Chayito 5 year model risk: 1.4%. NCI Lifetime model risk: 2.7%. Prior Study Comparison: 05/02/2016 Bilateral Screening Mammogram, [facility]. 09/18/2018 Bilateral Screening Mammogram, [facility]. 01/16/2022 Bilateral MG 3D diag mammo w/cad SEAMUS, [facility]. Tissue Density: There are scattered fibroglandular densities. Findings: Analyzed By CAD. There is no suspicious group of microcalcifications or new suspicious mass in either breast. Overall Assessment: Negative, BI-RAD 1 Management: Screening Mammogram of both breasts in 1 year. . Patient should continue monthly self-breast exams. A clinical breast exam by your physician is recommended on an annual basis. This exam should not preclude additional follow-up of suspicious palpable abnormalities. Note on Chayito scores and lifetime risk: 1. A Chayito score greater than 3% is considered moderate risk. If this is the case, consider specialist referral to assess eligibility for a risk reducing agent. 2. If overall lifetime risk for the development of breast cancer is 20% or higher, the patient may qualify for future screening with alternating mammogram and breast MRI. Electronically signed and approved by: Carrington Montgomery M.D. Radiologis
== END | disposition home or self-care (01) ==
LOC: RADMAMWWP 13:16
PROVIDERS: ATTEND Family Medicine
DX: Z12.31 Encounter for screening mammogram for malignant neoplasm of breast (principal); Z78.0 Asymptomatic menopausal state
CPT/HCPCS: 77067

== ENCOUNTER 2023-05-18 14:36 | Emergency (ER) | payer BC ==
--- NOTE | 2023-05-18 14:55 | ED ---
Extremity Problem HPI - General Source: patient, RN notes reviewed Mode of arrival: ambulatory Limitations: no limitations <Sanam Zafar - Last Filed: 05/18/23 14:51> <Ryder Camilo - Last Filed: 05/18/23 17:44> - General Chief complaint: Extremity Problem,Nontraumatic Stated complaint: left arm pain Time Seen by Provider: 05/18/23 14:51 - History of Present Illness Initial comments: This is a 77 year old female who presents to the emergency department for left arm pain. Symptoms started 3 days ago. Denies any injuries. She tried taking Tylenol and left over [place] with no significant relief in symptoms. Describes the pain as aching with some numbness in the elbow and fingers. The pain started closer to the shoulder and has started to spread towards the wrist. Pain is present both at rest and with movement. Denies any chest pain or shortness of breath. (Sanam Zafar) Dictation was produced using [employer] dictation software. please excuse any grammatical, word or spelling errors. Chief Complaint: 77-year-old female presents to the emergency department with arm pain History of Present Illness: This 77-year-old male presents emergency department for left upper extremity arm pain. Patient states that the pain is sharp pain mostly located to the bicep area. States it radiates down to the left forearm. She does complain of paresthesias to the left hand. States that the pain woke her up out of sleep 2-3 days ago. She has history of hypertension. States that she reacted take her medications today. She rates the pain as an 8 out of 10 on a pain scale. The ROS documented in this emergency department record has been reviewed and confirmed by me. Those systems with pertinent positive or negative responses have been documented in the HPI. All other systems are other negative and/or noncontributory. (Ryder Camilo) - Related Data Home Medications Medication Instructions Recorded Confirmed Aspirin [Adult Low Dose Aspirin EC] 81 mg PO DAILY 10/29/18 11/10/18 Cholecalciferol [Vitamin D3] 5,000 unit PO DAILY 10/29/18 11/10/18 Ibuprofen [Advil] 600 mg PO Q8HR PRN 10/29/18 11/10/18 Lisinopril-Hctz 20-25 mg 1 tab PO DAILY 10/29/18 11/10/18 [Zestoretic 20-25] Metoprolol Succinate [Toprol XL] 25 mg PO DAILY 10/29/18 11/10/18 Multivit-Min/FA/Lycopen/Lutein 1 tab PO DAILY 10/29/18 11/10/18 [Centrum Silver Tablet] Omeprazole [PriLOSEC] 20 mg PO AC-BRKFST 10/29/18 11/10/18 Pravastatin Sodium [Pravachol] 10 mg PO HS 10/29/18 11/10/18 Vit C/E/Zn/Coppr/Lutein/Zeaxan 1 cap PO BID 10/29/18 11/10/18 [Preservision Areds 2 Softgel] metFORMIN HCL [Glucophage] 1,000 mg PO QAM 10/29/18 11/10/18 Previous Rx's Medication Instructions Recorded Cyclobenzaprine [Flexeril] 10 mg PO HS PRN #30 tab 11/12/18 Docusate [Colace] 100 mg PO DAILY #30 capsule 11/12/18 Heparin Sodium,Porcine (1 ml) 5,000 unit SQ Q12HR #30 vial 11/12/18 [Heparin Sodium] Hydrocodone/Acetaminophen [[place] 1 - 2 each PO Q6HR PRN #56 tab 11/12/18 5-325] traMADol HCl [Ultram] 50 mg PO Q6H PRN #28 tab 11/12/18 Allergies Allergy/AdvReac Type Severity Reaction Status Date / Time No Known Allergies Allergy Verified 11/10/18 07:12 Review of Systems ROS Other: All systems not noted in ROS Statement are negative. <Sanam Zafar - Last Filed: 05/18/23 14:51> ROS Other: All systems not noted in ROS Statement are negative. <Ryder Camilo - Last Filed: 05/18/23 17:44> ROS Statement: Those systems with pertinent positive or pertinent negative responses have been documented in the HPI. Past Medical History Past Medical History: GERD/Reflux, Hyperlipidemia, Hypertension, Osteoarthritis (OA) Additional Past Medical History / Comment(s): hx palpitationsm, varicose veins, hx superfiscial phlebitis, History of Any Multi-Drug Resistant Organisms: None Reported Past Surgical History: Adenoidectomy, Joint Replacement, Tonsillectomy Additional Past Surgical History / Comment(s): left hip replacement, D&C x 5, Past Anesthesia/Blood Transfusion Reactions: Motion Sickness Additional Past Anesthesia/Blood Transfusion Reaction / Comment(s): hypotensive with one surgery, Past Psychological History: Anxiety Additional Psychological History / Comment(s): . 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 No recent travel. Dog in the home Past Alcohol Use History: Rare Past Drug Use History: None Reported - Past Family History Son(s) Family Medical History: Deep Vein Thrombosis (DVT), Pulmonary Embolus <Sanam Zafar - Last Filed: 05/18/23 14:51> General Exam <Sanam Zafar - Last Filed: 05/18/23 14:51> <Ryder Camilo - Last Filed: 05/18/23 17:44> - General Exam Comments Initial Comments: Visual Physical Exam Vital signs reviewed General: Well-appearing, nontoxic, no acute distress. Head: Normocephalic, atraumatic Eyes: PERRLA, EOMI ENT: Airway patent Chest: Nonlabored breathing Skin: No visual rash, normal skin tone Neuro: Alert and oriented 3 Musculoskeletal: No gross abnormalities I performed the QuickNote portion of this chart. Signed Sanam Zafar PA-C. (Sanam Zafar) PHYSICAL EXAM: General Impression: Alert and oriented x3, not in acute distress HEENT: Normocephalic atraumatic, extra-ocular movements intact, pupils equal and reactive to light bilaterally, mucous membranes moist. Cardiovascular: Heart regular rate and rhythm Chest: Able to complete full sentences, no retractions, no tachypnea Abdomen: abdomen soft, non-tender, non-distended, no organomegaly Musculoskeletal: Pulses present and equal in all extremities, no peripheral edema Motor: no focal deficits noted Neurological: CN II-XII grossly intact, no focal motor or sensory deficits noted Skin: Intact with no visualized rashes Psych: Normal affect and mood Left upper extremity: Intact left radial pulse, no gross deformities, no pallor or poikilothermia, no pain along the deep veins of the left upper extremity (Ryder Camilo) Course <Ryder Camilo - Last Filed: 05/18/23 17:44> Vital Signs 05/18/23 05/18/23 05/18/23 14:53 16:48 17:39 Temperature 98 F Pulse Rate 73 78 77 Respiratory 20 18 18 Rate Blood Pressure 211/120 203/100 212/120 O2 Sat by Pulse 98 97 97 Oximetry - Reevaluation(s) Reevaluation #1: 05/18/23 15:16 Patient seen and evaluated at the bedside. She is in room #2. Patient has significantly elevated blood pressure 211/120. Blood pressure at the bedside with systolic 233. States that she forgot to take her clonidine. Patient appears to be benign. She has normal neurovascular exam of she does complain of severe pain with hypertension. (Ryder Camilo) Reevaluation #2: 05/18/23 16:05 My EKG interpretation: Ventricular rate 76, sinus rhythm, AZ 120, QRS 12, QTC 4:15. No AZ prolongation, no QTC prolongation, no ST or T-wave changes noted. Overall, this EKG is unremarkable (Ryder Camilo) Medical Decision Making - Lab Data Result diagrams: 05/18/23 15:27 05/18/23 15:27 <Ryder Camilo - Last Filed: 05/18/23 17:44> - Medical Decision Making Was pt. sent in by a medical professional or institution ([facility], MILITARY COMMUNICATIONS SPECIALIST, urgent care, hospital, or prison...) When possible be specific @ -No Did you speak to anyone other than the patient for history (EMS, parent, family, police, friend...)? What history was obtained from this source @ -No Did you review nursing and triage notes (agree or disagree)? Why? @ -I reviewed and agree with nursing and triage notes Were old charts reviewed (outside hosp., previous admission, EMS record, old EKG, old radiological studies, urgent care reports/EKG's, prison records)? Report findings @ -No old charts were reviewed Differential Diagnosis (chest pain, altered mental status, abdominal pain women, abdominal pain men, vaginal bleeding, musculoskeletal, weakness, fever, dyspnea, syncope, headache, dizziness, GI bleed, back pain, seizure, CVA, palpatations, mental health)? @ -Arterial dissection, ACS EKG interpreted by me (3pts min.). @ -None done X-rays interpreted by me (1pt min.). @ -None done CT interpreted by me (1pt min.). @ -CT scan of the left upper extremity shows no acute processes U/S interpreted by me (1pt. min.). @ -None done What testing was considered but not performed or refused? (CT, X-rays, U/S, labs)? Why? @ -None What meds were considered but not given or refused? Why? @ -None Did you discuss the management of the patient with other professionals (professionals i.e. , PA, MILITARY COMMUNICATIONS SPECIALIST, lab, RT, psych nurse, social services counselor, men's custom hair piece consultant, teacher, collection officer, telephonic nurse case manager)? Give summary @ -No Was smoking cessation discussed for >3mins.? @ -No Was critical care preformed (if so, how long)? @ -No Were there social determinants of health that impacted care today? How? (Homelessness, low income, unemployed, alcoholism, drug addiction, transportation, low edu. Level, literacy, decrease access to med. care, skilled nursing, rehab)? @ -No Was there de-escalation of care discussed even if they declined (Discuss DNR or withdrawal of care, Hospice)? DNR status @ -No What co-morbidities impacted this encounter? (DM, HTN, Smoking, COPD, CAD, Cancer, CVA, ARF, Chemo, Hep., AIDS, mental health diagnosis, sleep apnea, morbid obesity)? @ -None Was patient admitted / discharged? Hospital course, mention meds given and route, prescriptions, significant lab abnormalities, going to OR and other pertinent info. @ -77-year-old female presents with left upper arm pain. Patient has no associated chest pain. No nausea diaphoresis. It is not worse with movement. She doesn't have any history of coronary artery disease reportedly. She does not have any physical exam findings to suggest any left upper extremity abnormality. Her pain is episodic and different locations sporadically. CT was obtained to rule out arterial dissection. Patient reevaluated bedside found to be with stable medical condition. Patient discharged advised follow-up with primary care doctor she is given oral analgesics to take home. Undiagnosed new problem with uncertain prognosis? @ -No Drug Therapy requiring intensive monitoring for toxicity (Heparin, Nitro, Insulin, Cardizem)? @ -No Were any procedures done? @ -No Diagnosis/symptom? Acute, or Chronic, or Acute on Chronic? Uncomplicated (without systemic symptoms) or Complicated (systemic symptoms)? @ -Arm pain, no obvious source, no high-risk features Side effects of treatment? @ -No Exacerbation, Progression, or Severe Exacerbation? @ -No Poses a threat to life or bodily function? How? (Chest pain, USA, AL, pneumonia, PE, COPD, DKA, ARF, appy, cholecystitis, CVA, Diverticulitis, Homicidal, Suicidal, threat to staff... and all critical care pts) @ -No (Ryder Camilo) - Lab Data Lab Results 05/18/23 05/18/23 05/18/23 Range/Units 15:27 15:27 15:27 WBC 4.9 (3.8-10.6) k/uL RBC 4.52 (3.80-5.40) m/uL Hgb 14.2 (11.4-16.0) gm/dL Hct 43.7 (34.0-46.0) % MCV 96.7 (80.0-100.0) fL MCH 31.5 (25.0-35.0) pg MCHC 32.5 (31.0-37.0) g/dL RDW 13.1 (11.5-15.5) % Plt Count 211 (150-450) k/uL MPV 7.6 Neutrophils % 72 % Lymphocytes % 19 % Monocytes % 6 % Eosinophils % 2 % Basophils % 0 % Neutrophils # 3.5 (1.3-7.7) k/uL Lymphocytes # 0.9 L (1.0-4.8) k/uL Monocytes # 0.3 (0-1.0) k/uL Eosinophils # 0.1 (0-0.7) k/uL Basophils # 0.0 (0-0.2) k/uL PT 10.9 (9.0-12.0) sec INR 1.0 (<1.2) APTT 25.3 (22.0-30.0) sec Sodium 139 (137-145) mmol/L Potassium 4.5 (3.5-5.1) mmol/L Chloride 101 (98-107) mmol/L Carbon Dioxide 26 (22-30) mmol/L Anion Gap 12 mmol/L BUN 21 H (7-17) mg/dL Creatinine 0.73 (0.52-1.04) mg/dL Est GFR (CKD-EPI)AfAm >90 (>60 ml/min/1.73 sqM) Est GFR (CKD-EPI)NonAf 80 (>60 ml/min/1.73 sqM) Glucose 134 H (74-99) mg/dL Calcium 10.4 H (8.4-10.2) mg/dL Disposition <Sanam Zafar - Last Filed: 05/18/23 14:51> Is patient prescribed a controlled substance at d/c from ED?: No Time of Disposition: 17:44 <Ryder Camilo - Last Filed: 05/18/23 17:44> Clinical Impression: Arm pain Disposition: HOME SELF-CARE Condition: Good Instructions (If sedation given, give patient instructions): Arm Pain (ED) Referrals: Ysabel Valdez MD [Primary Care Provider] - 1-2 days
[2023-05-18 14:57] VITALS: TEMP 98
[2023-05-18] MEDS ORDERED: MORPHINE SULFATE 2 MG/ML SYRINGE IV STA (15:13)
[2023-05-18 15:40] LABS: Basophils % (A) 0 %; Eosinophils # (A) 0.1 k/uL (0-0.7); Eosinophils % (A) 2 %; HCT 43.7 % (34.0-46.0); HGB 14.2 gm/dL (11.4-16.0); Lymphocytes # (A) 0.9 k/uL (1.0-4.8); Lymphocytes % (A) 19 %; MCH 31.5 pg (25.0-35.0); MCHC 32.5 g/dL (31.0-37.0); MCV 96.7 fL (80.0-100.0); Mean Platelet Volume 7.6; Monocytes # (A) 0.3 k/uL (0-1.0); Monocytes % (A) 6 %; Neutrophils # (A) 3.5 k/uL (1.3-7.7); Neutrophils % (A) 72 %; Platelet Count 211 k/uL (150-450); RBC 4.52 m/uL (3.80-5.40); RDW 13.1 % (11.5-15.5); WBC 4.9 k/uL (3.8-10.6)
[2023-05-18 15:48] LABS: Partial Thromboplastin Time 25.3 sec (22.0-30.0); Prothrombin Time 10.9 sec (9.0-12.0)
[2023-05-18 15:58] LABS: African American GFR (CKD) >90 (>60 ml/min/1.73 sqM); Anion Gap 12 mmol/L; Blood Urea Nitrogen 21 mg/dL (7-17); Calcium 10.4 mg/dL (8.4-10.2); Carbon Dioxide 26 mmol/L (22-30); Chloride 101 mmol/L (98-107); Glucose 134 mg/dL (74-99); Non-African American GFR(CKD) 80 (>60 ml/min/1.73 sqM); Potassium 4.5 mmol/L (3.5-5.1); Sodium 139 mmol/L (137-145)
[2023-05-18 16:51] VITALS: RESP 18
--- NOTE | 2023-05-18 17:21 | CT ---
CTA left upper extremity HISTORY: Arm pain COMPARISON: None TECHNIQUE: CTA of left upper extremity was performed according to CTA protocol. 3-D postprocessing wa s performed. FINDINGS: There is no evidence of occlusive disease of the arterial system of the left upper extremity. Subclavian origin is widely patent as is the left subclavian artery, left axillary artery, left brach ial artery and ulnar and radial arteries.. IMPRESSION: No evidence of occlusive disease of the arterial system of the left upper extremity.
[2023-05-18] MEDS ORDERED: traMADol 50 MG STARTER PACK 3 TAB BTL PO STA (17:40)
[2023-05-18 17:42] VITALS: BP 212/120; PULSE 77
== END 2023-05-18 18:14 | disposition home or self-care (01) ==
LOC: EC 14:36
DX: M79.602 Pain in left arm (principal); K21.9 Gastro-esophageal reflux disease without esophagitis; E78.5 Hyperlipidemia, unspecified; I10 Essential (primary) hypertension; M19.90 Unspecified osteoarthritis, unspecified site; Z79.82 Long term (current) use of aspirin; Z79.1 Long term (current) use of non-steroidal anti-inflammatories (NSAID); Z79.899 Other long term (current) drug therapy; Z86.59 Personal history of other mental and behavioral disorders
CPT/HCPCS: 36415; 80048; 85025; 85610; 85730; 73206; 99284; 96374; J2270; Q9967

== ENCOUNTER → 2024-05-31 | Outpatient (CLI) | payer BC ==
--- NOTE | 2024-06-02 18:48 | MM ---
Reason for Exam: Screening (asymptomatic). Last mammogram was performed 1 year(s) and 1 month(s) ago. Patient History: Menarche at age 14. First Full-Term at age 22. Postmenopausal. Patient used Hormonal Contraceptives for 5 years. Risk Values: Chayito 5 year model risk: 1.4%. NCI Lifetime model risk: 2.5%. Prior Study Comparison: 03/01/2015 Bilateral Screening Mammogram, [facility]. 05/02/2016 Bilateral Screening Mammogram, [facility]. 09/18/2018 Bilateral Screening Mammogram, [facility]. 01/16/2022 Bilateral MG 3D diag mammo w/cad [facility], [facility]. 04/29/2023 Bilateral MG screening mammo w CAD, [facility]. Tissue Density: The breasts are almost entirely fatty. Findings: Analyzed By CAD. Unchanged few scattered round and punctate calcifications. There is no suspicious group of microcalcifications or new suspicious mass in either breast. Overall Assessment: Benign, BI-RAD 2 Management: Screening Mammogram of both breasts in 1 year. . Patient should continue monthly self-breast exams. A clinical breast exam by your physician is recommended on an annual basis. This exam should not preclude additional follow-up of suspicious palpable abnormalities. Note on Chayito scores and lifetime risk: 1. A Chayito score greater than 3% is considered moderate risk. If this is the case, consider specialist referral to assess eligibility for a risk reducing agent. 2. If overall lifetime risk for the development of breast cancer is 20% or higher, the patient may qualify for future screening with alternating mammogram and breast MRI. [facility], , 06/02/2024 6:45 PM. Electronically signed and approved by: Tasha Prakash M.D. Radiologist
== END | disposition home or self-care (01) ==
LOC: RADMAMWWP 12:00
PROVIDERS: ATTEND Family Medicine
CPT/HCPCS: 77063; 77067